=== PATIENT | male | born 1980 | race Caucasian/White ===

== ENCOUNTER 2024-12-06 08:35 | Outpatient (CLI) | payer OTHER, SELFPAY ==
--- OUTSIDE RECORDS SUMMARY | 2024-12-08 16:16 | XMS_ITS | Data Portability ---
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 Follow-up 4 months CBC CMP thyroid studies and free and total testosterone [email or web address] Not available 02/27/2024 18:37:52 08/23/2024 08/23/2024 we will try to get him on GLP 1. Blood pressure is controlled. Dyslipidemia continue with statin. Contrave not working he got his blood work drawn this morning we will review it when available see me in 6 months. Patient will benefit from sleep study given fatigue low testosterone insomnia [email or web address] Not available 11/08/2024 12:05:39 Plan of Treatment Reminders Order Date Submit Date Provider Last Modified By Organization Details Last Modified Time Details Appointments ANY 15 2024 03:15P Andreas Kingston MD Not available Not available Not available Lab lipid panel, serum 2023 024 [place] [facility], [address], [place], [address], 03/18/2024 08:27:22 TSH + free T4, serum 2023 024 [place], [address], [place], [address], 03/19/2024 11:09:54 T3, free, serum or plasma 2023 024 [facility], [address], [place], [address], 03/19/2024 10:13:15 testoste trini, free + total, serum [address] [facility], [address], [place], [address], 03/23/2024 15:12:55 CBC w/ auto diff 2023 024 [place] [facility], [address], [place], [address], 03/18/2024 00:01:37 CMP, serum or plasma [address] [facility], [address], [place], [address], 03/18/2024 00:01:35 Referral None recorded . Procedures None recorded . Surgeries None recorded . Imaging None recorded . Medication Orders None recorded . Patient TargetsNo targets recorded. Patient Instructions Encounter Date Encounter Id Patient Instructions Last Modified By Organization Details Last Modified Time 08/23/2024 [id number] A healthy lifestyle: care instructions [email or web address] Not available 08/23/2024 21:15:34 Reason for Referral None Reported. Results Created Date Observation Date Name Description Value Unit Range Abnormal Flag Note LastModifiedBy Organization Detail LastModifiedTime 03/17/2003/17/2024 COMPR EHENS TORRES METAB OLIC PANEL sodium 141 mmol/ L 134-14 4 normal Not Available [facility] (Lab) [address] [place], [address], 03/18/2024 00:01:35 03/17/20 24 03/17/2024 COMPR EHENS TORRES METAB OLIC PANEL potassium 4.4 mmol/ L 3.5-5. 2 normal Not Available [facility] (Lab) [address], [place], [address], 03/18/2024 00:01:35 03/17/20 24 03/17/2024 COMPR EHENS TORRES METAB OLIC PANEL chloride 106 mmol/ L 96-[address] [facility] (Lab) [address] [place], [address], 03/18/2024 00:01:35 03/17/20 24 03/17/2024 COMPR EHENS TORRES METAB OLIC PANEL carbon dioxide 23 mmol/ L 20-[address] [facility] (Lab) [address] [place], [address], 03/18/2024 00:01:35 03/17/20 24 03/17/2024 COMPR EHENS TORRES METAB OLIC PANEL anion gap 17.0 mmol/ L Not Available [facility] (Lab) [address], [place], [address], 03/18/2024 00:01:35 03/17/20 24 03/17/2024 COMPR EHENS TORRES METAB OLIC PANEL blood urea nitrogen 19 mg/dL 6-24 normal Not Available [facility] (Lab) [address] [place], [address], 03/18/2024 00:01:35 03/17/20 24 03/17/2024 COMPR EHENS TORRES METAB OLIC PANEL creatinine 1.14 mg/dL 0.76-1 [address] [facility] (Lab) [address] [place], [address], 03/18/2024 00:01:35 03/17/20 24 03/17/2024 COMPR EHENS TORRES METAB OLIC PANEL glomerular filtration rate 82 mL/mi n/1 Not Available [facility] (Lab) [address] [place], [address], 03/18/2024 00:01:35 03/17/20 24 03/17/2024 COMPR EHENS TORRES METAB OLIC PANEL BUN creatinine ratio 17 9-20 normal Not Available [facility] (Lab) [address] [place], [address], 03/18/2024 00:01:35 03/17/20 24 03/17/2024 COMPR EHENS TORRES METAB OLIC PANEL glucose 106 mg/dL 70-[address] [facility] (Lab) [address] [place], [address], 03/18/2024 00:01:35 03/17/20 24 03/17/2024 COMPR EHENS TORRES METAB OLIC PANEL osmolality calculated 284 275-29 [address] [facility] (Lab) [address] [place], [address], 03/18/2024 00:01:35 03/17/20 24 03/17/2024 COMPR EHENS TORRES METAB OLIC PANEL calcium 9.7 mg/dL 8.7-10 .[address] [facility] (Lab) [address], [place], [address], 03/18/2024 00:01:35 03/17/20 24 03/17/2024 COMPR EHENS TORRES METAB OLIC PANEL bilirubin total 0.6 mg/dL 0.0-1. [address] [facility] (Lab) [address] [place], [address], 03/18/2024 00:01:35 03/17/20 24 03/17/2024 COMPR EHENS TORRES METAB OLIC PANEL aspartate amino transferase 37 IU/L 0-40 normal Not Available [facility] (Lab) [address] [place], [address], 03/18/2024 00:01:35 03/17/20 24 03/17/2024 COMPR EHENS TORRES METAB OLIC PANEL alanine aminotransfe rase 60 IU/L 0-44 high Not Available [facility] (Lab) [address] [place], [address], 03/18/2024 00:01:35 03/17/20 24 03/17/2024 COMPR EHENS TORRES METAB OLIC PANEL total protein 7.3 g/dL 6.0-8. 5 normal Not Available [facility] (Lab) [address], [place], [address], 03/18/2024 00:01:35 03/17/20 24 03/17/2024 COMPR EHENS TORRES METAB OLIC PANEL albumin level 4.7 g/dL 4.1-5. 1 normal Not Available [facility] (Lab) [address] [place], [address], 03/18/2024 00:01:35 03/17/20 24 03/17/2024 COMPR EHENS TORRES METAB OLIC PANEL globulin 2.6 g/dL 1.5-4. 5 normal Not Available [facility] (Lab) [address], [place], [address], 03/18/2024 00:01:35 03/17/20 24 03/17/2024 COMPR EHENS TORRES METAB OLIC PANEL albumin globulin ratio 2.0 1.2-2. 2 normal Not Available [facility] (Lab) [address], [place], [address], 03/18/2024 00:01:35 03/17/20 24 03/17/2024 COMPR EHENS TORRES METAB OLIC PANEL alkaline phosphatase 72 IU/L 44-121 normal Not Available [facility] (Lab) [address], [place], [address], 03/18/2024 00:01:35 03/17/20 24 03/17/2024 LIPID PANEL triglyceride s 213 mg/dL 0-149 high Not Available [facility] ([facility] [address], [place], [address], 03/18/2024 00:01:36 03/17/20 24 03/17/2024 LIPID PANEL cholesterol 233 mg/dL 100-19 9 high Not Available [facility] (Lab) [address], [place], [address], 03/18/2024 00:01:36 03/17/20 24 03/17/2024 LIPID PANEL LDL cholesterol 151 mg/dL 0-99 high Not Available [facility] [address] [place], [address], 03/18/2024 00:01:36 03/17/20 24 03/17/2024 LIPID PANEL HDL cholesterol 41 mg/dL 40-999 normal Not Available [facility] [address] [place], [address], 03/18/2024 00:01:36 03/17/20 24 03/17/2024 LIPID PANEL chol HDL ratio 6.0 mg/dL 0-5.0 high Not Available [facility] ([facility]) [address], [place], [address], 03/18/2024 00:01:36 03/17/20 24 03/17/2024 COMPL ETE BLOOD COUNT AUTO DIFF white blood count 6.0 x10e3 /uL 3.4-10 .8 normal Not Available [facility] (Lab) [address], [place], [address], 03/18/2024 00:01:37 03/17/20 24 03/17/2024 COMPL ETE BLOOD COUNT AUTO DIFF red blood count 4.70 x10e6 /uL 4.14-5 .80 normal Not Available [facility] (Lab) [address], [place], [address], 03/18/2024 00:01:37 03/17/20 24 03/17/2024 COMPL ETE BLOOD COUNT AUTO DIFF hemoglobin 14.5 g/dL 13.0-1 7.7 normal Not Available [facility] (Lab) [address] [place], [address], 03/18/2024 00:01:37 03/17/20 24 03/17/2024 COMPL ETE BLOOD COUNT AUTO DIFF hematocrit 42.5 % 37.5-5 1.0 normal Not Available [facility] (Lab) [address] [place], [address], 03/18/2024 00:01:37 03/17/20 24 03/17/2024 COMPL ETE BLOOD COUNT AUTO DIFF mean corpuscular volume 90 fL 79-97 normal Not Available [facility] (Lab) [address] [place], [address], 03/18/2024 00:01:37 03/17/20 24 03/17/2024 COMPL ETE BLOOD COUNT AUTO DIFF mean corpuscular hemoglobin 30.9 pg 26.6-3 3[address] [facility] (Lab) [address] [place], [address], 03/18/2024 00:01:37 03/17/20 24 03/17/2024 COMPL ETE BLOOD COUNT AUTO DIFF mean corpuscular HGB conc 34.1 g/dL 31.5-3 5.[address] [facility] (Lab) [address] [place], [address], 03/18/2024 00:01:37 03/17/20 24 03/17/2024 COMPL ETE BLOOD COUNT AUTO DIFF red cell distribution width 12.4 % 11.5-1 4.[address] [facility] (Lab) [address] [place], [address], 03/18/2024 00:01:37 03/17/20 24 03/17/2024 COMPL ETE BLOOD COUNT AUTO DIFF platelet count 329 x10e3 /uL 150-45 [address] [facility] (Lab) [address] [place], [address], 03/18/2024 00:01:37 03/17/20 24 03/17/2024 COMPL ETE BLOOD COUNT AUTO DIFF mean platelet volume 9.8 fL 8.9-12 .[address] [facility] (Lab) [address] [place], [address], 03/18/2024 00:01:37 03/17/20 24 03/17/2024 COMPL ETE BLOOD COUNT AUTO DIFF immature granulocytes pct auto 0.5 % not estb. Not Available [facility] (Lab) [address] [facility], [place], [address], 03/18/2024 00:01:37 03/17/20 24 03/17/2024 COMPL ETE BLOOD COUNT AUTO DIFF neutrophils percent auto 51 % not estb. Not Available [facility] (Lab) [address] [place], [address], 03/18/2024 00:01:37 03/17/20 24 03/17/2024 COMPL ETE BLOOD COUNT AUTO DIFF lymphocytes percent auto 36 % not estb. Not Available [facility] (Lab) [address] [place], [address], 03/18/2024 00:01:37 03/17/20 24 03/17/2024 COMPL ETE BLOOD COUNT AUTO DIFF monocytes percent auto 10 % not estb. Not Available [facility] (Lab) [address] [facility], [place], [address], 03/18/2024 00:01:37 03/17/20 24 03/17/2024 COMPL ETE BLOOD COUNT AUTO DIFF eosinophils percent auto 2 % not estb. Not Available [facility] (Lab) [address] [facility], [place], [address], 03/18/2024 00:01:37 03/17/20 24 03/17/2024 COMPL ETE BLOOD COUNT AUTO DIFF basophils percent auto 1 % not estb. Not Available [facility] (Lab) [address] [facility], [place], [address], 03/18/2024 00:01:37 03/17/20 24 03/17/2024 COMPL ETE BLOOD COUNT AUTO DIFF neutrophils absolute auto 3.0 x10e3 /uL 1.4-7. [address] [facility] (Lab) [address] [facility], [place], [address], 03/18/2024 00:01:37 03/17/20 24 03/17/2024 COMPL ETE BLOOD COUNT AUTO DIFF immature granulocytes abs auto 0.0 x10e3 /uL 0.0-0. [address] [facility] (Lab) [address] [place], [address], 03/18/2024 00:01:37 03/17/20 24 03/17/2024 COMPL ETE BLOOD COUNT AUTO DIFF lymphocytes absolute auto 2.2 x10e3 /uL 0.7-3. [address] [facility] (Lab) [address] [place], [address], 03/18/2024 00:01:37 03/17/20 24 03/17/2024 COMPL ETE BLOOD COUNT AUTO DIFF monocytes absolute auto 0.6 x10e3 /uL 0.1-0. [address] [facility] (Lab) [address] [place], [address], 03/18/2024 00:01:37 03/17/20 24 03/17/2024 COMPL ETE BLOOD COUNT AUTO DIFF eosinophils absolute auto 0.1 x10e3 /uL 0.0-0. [address] [facility] (Lab) [address] [place], [address], 03/18/2024 00:01:37 03/17/20 24 03/17/2024 COMPL ETE BLOOD COUNT AUTO DIFF basophils absolute auto 0.0 x10e3 /uL 0.0-0. [address] [facility] (Lab) [address] [place], [address], 03/18/2024 00:01:37 03/17/20 24 03/17/2024 COMPL ETE BLOOD COUNT AUTO DIFF nucleated red blood cells auto 0 % 0-0 normal Not Available [facility] (Lab) [address] [place], [address], 03/18/2024 00:01:37 03/17/20 24 03/19/2024 TRIIO DOTHY DAVID E (T3), FREE triiodothyro nine (T3), free 3.5 pg/mL 2.0-4. 4 [facility]: [facility] [address] [place] [address] Lab Direc tor: Buddy jerez PhD, Phone : [phone] Not Available [facility] (Lab) [address] [place], [address], 03/19/2024 11:09:54 03/17/20 24 03/19/2024 TSH+F REE T4 TSH 1.760 uIU/m L 0.450- 4.500 Not Available [facility] (Lab) [address] [place], [address], 03/19/2024 11:09:54 03/17/20 24 03/19/2024 TSH+F REE T4 T4,free(dire ct) 1.20 NG/dL 0.82-1 .77 Perfo rmed at: [facility] - [facility] [address] [place] [address] Lab Direc tor: Buddy jerez PhD, Phone : [phone] Not Available [facility] (Lab) [address] [place], [address], 03/19/2024 11:09:54 03/17/20 24 03/23/2024 TESTO STERO NE, FREE/ TOT EQUIL IB testosterone 96 NG/dL 264-91 6 abnormal Adult male refer ence inter neeta is based on a popul ation of healt hy nonob lin males (BMI <30) betwe en 19 and 39 years old. Haydee gamboa et.al . JCEM 2017, 102;1 161-1 173. PMID: 66482 103. Not Available [facility] (Lab) [address] [place], [address], 03/23/2024 15:12:55 03/17/20 24 03/23/2024 TESTO STERO NE, FREE/ TOT EQUIL IB testosterone ,free 3.59 NG/dL 5.00-2 1.00 abnormal Not Available [facility] (Lab) [address] [place], [address], 03/23/2024 15:12:55 03/17/20 24 03/23/2024 TESTO STERO NE, FREE/ TOT EQUIL IB % free testosterone 3.74 % 1.50-4 .20 Perfo rmed at: 01 - [facility] n [address] [facility], [place] [address] Lab Direc tor: Buddy jerez PhD, Phone : [phone] Perfo rmed at: 02 - [facility] [address] [place] [address] Lab Direc tor: Sandee alfaro MD, Phone : [phone] [facility] (Lab) [address] [place], [address], 03/23/2024 15:12:55 04/19/20 24 04/19/2024 COMPR EHENS TORRES METAB OLIC PANEL sodium 141 mmol/ L 134-14 4 normal Not Available [facility] (Lab) [address] [place], [address], 04/19/2024 21:18:11 04/19/20 24 04/19/2024 COMPR EHENS TORRES METAB OLIC PANEL potassium 4.7 mmol/ L 3.5-5. [address] [facility] (Lab) [address] [facility], [place], [address], 04/19/2024 21:18:11 04/19/20 24 04/19/2024 COMPR EHENS TORRES METAB OLIC PANEL chloride 104 mmol/ L 96-106 normal Not Available [facility] (Lab) [address] [place], [address], 04/19/2024 21:18:11 04/19/20 24 04/19/2024 COMPR EHENS TORRES METAB OLIC PANEL carbon dioxide 21 mmol/ L 20-29 normal Not Available [facility] (Lab) [address] [place], [address], 04/19/2024 21:18:11 04/19/20 24 04/19/2024 COMPR EHENS TORRES METAB OLIC PANEL anion gap 21.0 mmol/ L Not Available [facility] (Lab) [address] [place], [address], 04/19/2024 21:18:11 04/19/20 24 04/19/2024 COMPR EHENS TORRES METAB OLIC PANEL blood urea nitrogen 19 mg/dL 6-24 normal Not Available [facility] (Lab) [address] [place], [address], 04/19/2024 21:18:11 04/19/20 24 04/19/2024 COMPR EHENS TORRES METAB OLIC PANEL creatinine 1.10 mg/dL 0.76-1 .27 normal Not Available [facility] (Lab) [address], [place], [address], 04/19/2024 21:18:11 04/19/20 24 04/19/2024 COMPR EHENS TORRES METAB OLIC PANEL glomerular filtration rate 86 mL/mi n/1 Not Available [facility] (Lab) [address] [place], [address], 04/19/2024 21:18:11 04/19/20 24 04/19/2024 COMPR EHENS TORRES METAB OLIC PANEL BUN creatinine ratio 17 9-20 normal Not Available [facility] (Lab) [address] [place], [address], 04/19/2024 21:18:11 04/19/20 24 04/19/2024 COMPR EHENS TORRES METAB OLIC PANEL glucose 109 mg/dL 70-99 high Not Available [facility] (Lab) [address] [place], [address], 04/19/2024 21:18:11 04/19/20 24 04/19/2024 COMPR EHENS TORRES METAB OLIC PANEL osmolality calculated 284 275-29 5 normal Not Available [facility] (Lab) [address] [place], [address], 04/19/2024 21:18:11 04/19/20 24 04/19/2024 COMPR EHENS TORRES METAB OLIC PANEL calcium 10.0 mg/dL 8.7-10 .[address] [facility] (Lab) [address], [place], [address], 04/19/2024 21:18:11 04/19/20 24 04/19/2024 COMPR EHENS TORRES METAB OLIC PANEL bilirubin total 0.5 mg/dL 0.0-1. [address] [facility] (Lab) [address], [place], [address], 04/19/2024 21:18:11 04/19/20 24 04/19/2024 COMPR EHENS TORRES METAB OLIC PANEL aspartate amino transferase 30 IU/L 0-40 normal Not Available [facility] (Lab) [address] [place], [address], 04/19/2024 21:18:11 04/19/20 24 04/19/2024 COMPR EHENS TORRES METAB OLIC PANEL alanine aminotransfe rase 58 IU/L 0-44 high Not Available [facility] (Lab) [address] [place], [address], 04/19/2024 21:18:11 04/19/20 24 04/19/2024 COMPR EHENS TORRES METAB OLIC PANEL total protein 7.7 g/dL 6.0-8. [address] [facility] (Lab) [address], [place], [address], 04/19/2024 21:18:11 04/19/20 24 04/19/2024 COMPR EHENS TORRES METAB OLIC PANEL albumin level 4.8 g/dL 4.1-5. [address] [facility] (Lab) [address] [place], [address], 04/19/2024 21:18:11 04/19/20 24 04/19/2024 COMPR EHENS TORRES METAB OLIC PANEL globulin 2.9 g/dL 1.5-4. [address] [facility] (Lab) [address] [place], [address], 04/19/2024 21:18:11 04/19/20 24 04/19/2024 COMPR EHENS TORRES METAB OLIC PANEL albumin globulin ratio 2.0 1.2-2. [address] [facility] (Lab) [address] [place], [address], 04/19/2024 21:18:11 04/19/20 24 04/19/2024 COMPR EHENS TORRES METAB OLIC PANEL alkaline phosphatase 78 IU/L 44-121 normal Not Available [facility] (Lab) [address], [place], [address], 04/19/2024 21:18:11 04/19/20 24 04/19/2024 COMPL ETE BLOOD COUNT AUTO DIFF white blood count 6.9 x10e3 /uL 3.4-10 .[address] [facility] (Lab) [address], [place], [address], 04/19/2024 21:54:24 04/19/20 24 04/19/2024 COMPL ETE BLOOD COUNT AUTO DIFF red blood count 4.92 x10e6 /uL 4.14-5 [address] [facility] (Lab) [address] [place], [address], 04/19/2024 21:54:24 04/19/20 24 04/19/2024 COMPL ETE BLOOD COUNT AUTO DIFF hemoglobin 15.1 g/dL 13.0-1 7.[address] [facility] (Lab) [address] [place], [address], 04/19/2024 21:54:24 04/19/20 24 04/19/2024 COMPL ETE BLOOD COUNT AUTO DIFF hematocrit 44.1 % 37.5-5 1.[address] [facility] (Lab) [address] [place], [address], 04/19/2024 21:54:24 04/19/20 24 04/19/2024 COMPL ETE BLOOD COUNT AUTO DIFF mean corpuscular volume 90 fL 79-97 normal Not Available [facility] (Lab) [address] [facility], [place], [address], 04/19/2024 21:54:24 04/19/20 24 04/19/2024 COMPL ETE BLOOD COUNT AUTO DIFF mean corpuscular hemoglobin 30.7 pg 26.6-3 3.0 normal Not Available [facility] (Lab) [address] [place], [address], 04/19/2024 21:54:24 04/19/20 24 04/19/2024 COMPL ETE BLOOD COUNT AUTO DIFF mean corpuscular HGB conc 34.2 g/dL 31.5-3 5.7 normal Not Available [facility] (Lab) [address] [place], [address], 04/19/2024 21:54:24 04/19/20 24 04/19/2024 COMPL ETE BLOOD COUNT AUTO DIFF red cell distribution width 12.5 % 11.5-1 4.5 normal Not Available [facility] (Lab) [address] [facility], [place], [address], 04/19/2024 21:54:24 04/19/20 24 04/19/2024 COMPL ETE BLOOD COUNT AUTO DIFF platelet count 309 x10e3 /uL 150-45 0 normal Not Available [facility] (Lab) [address] [place], [address], 04/19/2024 21:54:24 04/19/20 24 04/19/2024 COMPL ETE BLOOD COUNT AUTO DIFF mean platelet volume 10.2 fL 8.9-12 .7 normal Not Available [facility] (Lab) [address] [place], [address], 04/19/2024 21:54:24 04/19/20 24 04/19/2024 COMPL ETE BLOOD COUNT AUTO DIFF immature granulocytes pct auto 1.7 % not estb. Not Available [facility] (Lab) [address], [place], [address], 04/19/2024 21:54:24 04/19/20 24 04/19/2024 COMPL ETE BLOOD COUNT AUTO DIFF neutrophils percent auto 55 % not estb. Not Available [facility] (Lab) [address] [facility], [place], [address], 04/19/2024 21:54:24 04/19/20 24 04/19/2024 COMPL ETE BLOOD COUNT AUTO DIFF lymphocytes percent auto 31 % not estb. Not Available [facility] (Lab) [address] [facility], [place], [address], 04/19/2024 21:54:24 04/19/20 24 04/19/2024 COMPL ETE BLOOD COUNT AUTO DIFF monocytes percent auto 10 % not estb. Not Available [facility] (Lab) [address], [place], [address], 04/19/2024 21:54:24 04/19/20 24 04/19/2024 COMPL ETE BLOOD COUNT AUTO DIFF eosinophils percent auto 1 % not estb. Not Available [facility] (Lab) [address] [facility], [place], [address], 04/19/2024 21:54:24 04/19/20 24 04/19/2024 COMPL ETE BLOOD COUNT AUTO DIFF basophils percent auto 1 % not estb. Not Available [facility] (Lab) [address] [facility], [place], [address], 04/19/2024 21:54:24 04/19/20 24 04/19/2024 COMPL ETE BLOOD COUNT AUTO DIFF neutrophils absolute auto 3.8 x10e3 /uL 1.4-7. 0 normal Not Available [facility] (Lab) [address] [facility], [place], [address], 04/19/2024 21:54:24 04/19/20 24 04/19/2024 COMPL ETE BLOOD COUNT AUTO DIFF immature granulocytes abs auto 0.1 x10e3 /uL 0.0-0. [address] [facility] (Lab) [address] [place], [address], 04/19/2024 21:54:24 04/19/20 24 04/19/2024 COMPL ETE BLOOD COUNT AUTO DIFF lymphocytes absolute auto 2.2 x10e3 /uL 0.7-3. 1 normal Not Available [facility] (Lab) [address] [place], [address], 04/19/2024 21:54:24 04/19/20 24 04/19/2024 COMPL ETE BLOOD COUNT AUTO DIFF monocytes absolute auto 0.7 x10e3 /uL 0.1-0. [address] [facility] (Lab) [address] [place], [address], 04/19/2024 21:54:24 04/19/20 24 04/19/2024 COMPL ETE BLOOD COUNT AUTO DIFF eosinophils absolute auto 0.1 x10e3 /uL 0.0-0. 4 normal Not Available [facility] (Lab) [address] [place], [address], 04/19/2024 21:54:24 04/19/20 24 04/19/2024 COMPL ETE BLOOD COUNT AUTO DIFF basophils absolute auto 0.0 x10e3 /uL 0.0-0. 2 normal Not Available [facility] (Lab) [address] [place], [address], 04/19/2024 21:54:24 04/19/20 24 04/19/2024 COMPL ETE BLOOD COUNT AUTO DIFF nucleated red blood cells auto 0 % 0-0 normal Not Available [facility] ([facility]) [address] [place], [address], 04/19/2024 21:54:24 04/19/20 24 04/21/2024 PROST ATE SPECI FIC AG prostate specific Ag 0.7 NG/mL 0.0-4. 0 Trevon ECLIA metho dolog y. Accor ding to the [employer]i can [employer] i[employer] n, Serum PSA shoul d decre ase and remai n at undet ectab le level s after radic al prost atect j[place]. The AUA defin es bioch emica l recur rence as an initi al PSA value 0.2 ng/mL or great er follo wed by a subse quent confi rmato ry PSA value 0.2 ng/mL or great er. Value s obtai radu with diffe rent assay metho ds or kits canno t be used inter desai eably . Resul ts canno t be inter prete d as absol ambler evide nce of the prese nce or absen ce of beau espinosa se. Perfo rmed at: 01 - [facility] [address] [id number] [facility]8 Lab Direc tor: Buddy jerez PhD, Phone : [phone] [facility] (Lab) [address] [place], [address], 04/21/2024 12:11:41 04/19/20 24 04/25/2024 TESTO STERO NE, FREE/ TOT EQUIL IB testosterone 257 NG/dL 264-91 6 abnormal Adult male refer ence inter neeta is based on a popul ation of healt hy nonob lin males (BMI <30) betwe en 19 and 39 years old. Haydee gamboa, et.al . JCEM 2017, 102;1 161-1 173. PMID: [address] [facility] (Lab) [address] [place], [address], 04/25/2024 22:09:41 04/19/20 24 04/25/2024 TESTO STERO NE, FREE/ TOT EQUIL IB testosterone ,free 10.15 NG/dL 5.00-2 1.00 Not Available [facility] [facility] ([facility] [address] [place], [address], 04/25/2024 22:09:41 04/19/20 24 04/25/2024 TESTO STERO NE, FREE/ TOT EQUIL IB % free testosterone 3.95 % 1.50-4 .20 Perfo rmed at: 01 - [facility] n [address] [place] [address] 126 Lab Direc tor: Buddy jerez PhD, Phone : [phone] Perfo rmed at: 02 - [facility] [place] [address] [facility] , [place] [address] Lab Direc tor: Sandee alfaro MD, Phone : [phone] Not Available [facility] (Lab) [address] [facility], [place], [address], 04/25/2024 22:09:41 08/23/2008/25/2024 LONG TIN ferritin 259 NG/mL 30-400 Perfo rmed at: 01 - [facility] n [address] [place], [place] [id number] Lab Direc tor: Buddy jerez PhD, Phone : [phone] Not Available [facility] (Lab) [address] [facility], [place], [address], 08/25/2024 08:15:02 08/23/20 24 08/25/2024 IRON AND TIBC iron bind.cap.(TI BC) 178 ug/dL 250-45 0 abnormal Not Available [facility] (Lab) [address] [facility], [place], [address], 08/25/2024 08:15:03 08/23/20 24 08/25/2024 IRON AND TIBC UIBC 98 ug/dL 111-34 3 abnormal Not Available [facility] (Lab) [address] [place], [address], 08/25/2024 08:15:03 08/23/20 24 08/25/2024 IRON AND TIBC iron 80 ug/dL 38-169 Not Available [facility] (Lab) [address] [facility], [place], [address], 08/25/2024 08:15:03 08/23/20 24 08/25/2024 IRON AND TIBC iron saturation 45 % 15-55 Not Available [facility] ([facility]) [address] [facility], [place], [address], 08/25/2024 08:15:03 08/23/20 24 08/25/2024 ACUTE HEPAT ITIS hep A Ab, IgM NEGATI VE negati ve A negat torres anti- HAV IgM resul t sugge sts no recen t or curre nt HAV infec tion. Not Available [facility] [address] [facility], [place], [address], 08/25/2024 08:15:04 08/23/20 24 08/25/2024 ACUTE HEPAT ITIS HBsAg screen NEGATI VE negati ve Not Available [facility] (Lab) [address] [facility], [place], [address], 08/25/2024 08:15:04 08/23/20 24 08/25/2024 ACUTE HEPAT ITIS hep B core Ab, IgM NEGATI VE negati ve Not Available [facility] (Lab) [address] [facility], [place], [address], 08/25/2024 08:15:04 08/23/20 24 08/25/2024 ACUTE HEPAT ITIS HCV Ab NON REACTI VE non reacti ve Not Available [facility] (Lab) [address] [facility], [place], [address], 08/25/2024 08:15:04 08/23/20 24 08/25/2024 ACUTE HEPAT ITIS interpretati on: COMMEN T . Not infec arturo with HCV unles s early or acute infec tion is suspe cted (whic h may be delay ed in an immun ocomp romis ed indiv idual ), or other evide nce exist s to indic ate HCV infec tion. Perfo rmed at: 01 - [facility] [address] [facility], [place] [id number] [facility] Lab Direc tor: Buddy jerez PhD, Phone : [phone] Not Available [facility] [address] [place], [address], 08/25/2024 08:15:04 08/23/2008/25/2024 LONG TIN ferritin 259 NG/mL 30-400 Perfo rmed at: 01 - [facility] [place] [address] [facility], [place] [id number] [facility] Lab Direc tor: Buddy jerez PhD, Phone : [phone] Not Available [facility] [address] [facility], [place], [address], 08/25/2024 11:14:59 08/23/2008/25/2024 IRON AND TIBC iron bind.cap.(TI BC) 178 ug/dL 250-45 0 abnormal Not Available [facility] (Lab) [address] [place], [address], 08/25/2024 11:14:59 08/23/2008/25/2024 IRON AND TIBC UIBC 98 ug/dL 111-34 3 abnormal Not Available [facility] (Lab) [address] [facility], [place], [address], 08/25/2024 11:14:59 08/23/2008/25/2024 IRON AND TIBC iron 80 ug/dL 38-169 Not Available [facility] (Lab) [address] [place], [address], 08/25/2024 11:14:59 08/23/2008/25/2024 IRON AND TIBC iron saturation 45 % 15-55 Not Available [facility] [address] [place], [address], 08/25/2024 11:14:59 08/23/2008/25/2024 STEVE COMPR EHENS TORRES PANEL anti-DNA (ds) Ab qn <1 IU/mL 0-9 Negat torres <5 Equiv ocal 5 - 9 Posit torres >9 Not Available [facility] [address] [place], [address], 08/25/2024 11:15:00 08/23/20 24 08/25/2024 STEVE COMPR EHENS TORRES PANEL production engine repairer antibodies <0.2 ai 0.0-0. [address] [facility] (Lab) [address] [place], [address], 08/25/2024 11:15:00 08/23/20 24 08/25/2024 STEVE COMPR EHENS TORRES PANEL beverly antibodies <0.2 ai 0.0-0. [address] [facility] (Lab) [address] [place], [address], 08/25/2024 11:15:00 08/23/20 24 08/25/2024 STEVE COMPR EHENS TORRES PANEL antisclerode rma-70 antibodies <0.2 ai 0.0-0. [address] [facility] (Lab) [address] [place], [address], 08/25/2024 11:15:00 08/23/20 24 08/25/2024 STEVE COMPR EHENS TORRES PANEL sjogren's anti-ss-A <0.2 ai 0.0-0. [address] [facility] (Lab) [address] [place], [address], 08/25/2024 11:15:00 08/23/20 24 08/25/2024 STEVE COMPR EHENS TORRES PANEL sjogren's anti-ss-B <0.2 ai 0.0-0. [address] [facility] (Lab) [address] [place], [address], 08/25/2024 11:15:00 08/23/20 24 08/25/2024 STEVE COMPR EHENS TORRES PANEL antichromati n antibodies <0.2 ai 0.0-0. [address] [facility] (Lab) [address] [place], [address], 08/25/2024 11:15:00 08/23/20 24 08/25/2024 STEVE COMPR EHENS TORRES PANEL anti-annette-1 <0.2 ai 0.0-0. [address] [facility] (Lab) [address] [place], [address], 08/25/2024 11:15:00 08/23/20 24 08/25/2024 STEVE COMPR EHENS TORRES PANEL anti-centrom ere B antibodies <0.2 ai 0.0-0. [address] [facility] (Lab) [address] [place], [address], 08/25/2024 11:15:00 08/23/20 24 08/25/2024 STEVE COMPR EHENS TORRES PANEL see below: Francisco Perez [employer] nt[employer] [facility] [employer] se [employer] iatio n ----- ----- ----- ----- ----- ----- ----- ----- ----- ----- ----- ----- Condi tion Frequ ency ----- ----- ----- ----- - ----- ----- ----- ----- ---- ----- ---- Antin uclea r Antib laxmi, SLE, mixed conne ctive Direc t (STEVE- D) xinu e disea ses ----- ----- ----- ----- - ----- ----- ----- ----- ---- ----- ---- dsDNA SLE 40 - 60% ----- ----- ----- ----- - ----- ----- ----- ----- ---- ----- ---- Chrom atin Drug induc ed SLE 90% SLE 48 - 97% ----- ----- ----- ----- - ----- ----- ----- ----- ---- ----- ---- SSA (Ro) SLE 25 - 35% Sjogr en's Syndr ome 40 - 70% Neona iesha Lupus 100% ----- ----- ----- ----- - ----- ----- ----- ----- ---- ----- ---- SSB (La) SLE 10% Sjogr en's Syndr ome 30% ----- ----- ----- ----- - ----- ----- ----- ----- --- ----- ---- Sm (anti -Ashok h) SLE 15 - 30% ----- ----- ----- ----- - ----- ----- ----- ----- --- ----- ---- APARTMENT COORDINATOR Mixed Conne ctive Tissu e Disea se 95% (U1 nRNP, SLE 30 - 50% anti- ribon ucleo prote in) Polym yosit is and/o r [place] tomyo sitis 20% ----- ----- ----- ----- - ----- ----- ----- ----- ---- ----- ---- Scl-7 0 (anti DNA Scler oderm a (diff use) 20 - 35% topoi mihaela ase) Crest 13% ----- ----- ----- ----- - ----- ----- ----- ----- ---- ----- ---- Annette-1 Polym yosit is and/o r [place] tomyo sitis 20 - 40% ----- ----- ----- ----- - ----- ----- ----- ----- ---- ----- ---- Centr omere B Scler oderm a - Crest varia nt 80% Perfo rmed at: 01 - [facility] [address] [place] [address] Lab Direc tor: Buddy jerez PhD, Phone : [phone] [facility] (Lab) [address] [place], [address], 08/25/2024 11:15:00 08/23/20 24 08/25/2024 CERUL OPLAS MIN ceruloplasmi n 19.8 mg/dL 16.0-3 1.0 Perfo rmed at: 01 - [facility] [address] [place] [address] Lab Direc tor: Buddy jerez PhD, Phone : [phone] [facility] (Lab) [address] [place], [address], 08/25/2024 13:09:23 Result Notes None recorded. Problems Name Problem SNOMED Code Status Onset Date Resolution Date Notes Provider Name and Address Organization Details Recorded Time Testosterone level below reference range 510389751 Active 2023 ANIBAL [place], [place] - [facility] 4 16:08:18 Screening for malignant neoplasm of prostate Active 2023 Jamaal Chakraborty [place], [place] [facility] 4 16:08:19 Liver enzymes level above reference range 819042331 Active 2023 Jamaal Chakraborty [place] [facility] 4 11:34:52 Fatigue 48149498 Active 2023 Jamaal Chakraborty [place] [facility] 4 11:35:22 Essential hypertension 01726486 Active 2023 Sarahi Kingston MD Attn: Ricardo melo,[address] [facility], [place], [address] [facility] [place] [facility] 4 22:03:40 Hyperlipidemia 32130114 Active 2023 Sarahi Kingston MD Attn: Ricardo melo,[address] [facility], [place], [address], [facility] 4 22:03:41 Morbid obesity 263369208 Active 2023 Sarahi Kingston MD Attn: Ricardo melo,[address] [facility], [place], [address], [facility] - [facility] 4 22:03:44 Insomnia 115251695 Active 2023 Sarahi Kingston MD Attn: Ricardo melo,[address] [facility], [place], [address], [facility] - [facility] 4 22:04:03 Problem Notes None recorded. Procedures Surgical History Date Name Laterality Status Provider Name and Address Organization Details Recorded Time Cholecystectomy completed Sudha Mccord MA [facility] 02/26/2024 11:46:23 removal of pilonidal cyst completed Sudha Mccord MA [facility] 02/26/2024 11:49:38 Imaging Results None recorded. Procedure Notes None recorded. Medical Equipment None Reported. Allergies Allergen ID Allergen Name Allergen Category Reaction Reaction Severity Criticality Documentation Date Start Date Code Code System Note Provider Name and Address Organization Details Recorded Time [id number] lisinopri l medicatio n cough Not available Not available 02/26/2024 85473 RxNorm Not Available Not Available Not Available Medications Name Sig Start Date Stop Date Status Note LastModified by Organization Details LastModified Time atorvastatin 10 mg tablet TAKE 1 TABLET DAILY active Not Available Not Available No t Available lisinopril 10 mg tablet take 1 tablet by mouth daily active Not Available Not Available Not Available losartan 25 mg tablet TAKE 1 TABLET DAILY active Not Available Not Available No t Available BD Luer-Asim Syringe 3 mL 25 gauge x 1 active Not Available Not Available Not Available testosterone cypionate 200 mg/mL intramuscula r oil Inject 200 mg every 2 weeks by intramuscul ar route. active Not Available Not Available No t Available zolpidem 10 mg tablet active Not Available Not Available No t Available Contrave 8 mg-90 mg tablet,exten ded release active Not Available Not Available Not Available Wegovy 1 mg/0.5 mL subcutaneous pen injector inject 0.5mg weekly for 4wks then go to 1mg weekly 2024 active Not Available Not Available Not Avai lable Wegovy 0.25 mg/0.5 mL subcutaneous pen injector INJECT 0.25MG SUBCUTANEOU SLY ONCE A WEEK FOR 4 WEEKS THEN INCREASE TO 0.5MG active Not Available Not Available No t Available Wegovy 0.5 mg/0.5 mL subcutaneous pen injector inject 0.5mg weekly for 4wks then go to 1mg weekly 2023 active Not Available Not Available Not Avai lable Vitals Date Recorded Body height Provider Name an d Address Organization Details Last Updated DateTime 02/26/2024 180.34 cm Sudha Mccord MA [facility] 2023 11:45:35 Date Recorded Body mass index (BMI) Body weight Provider Name and Address Organization Details Last Updated DateTime 02/26/2024 41.2 kg/m2 957425.19 g Sudha Mccord MA [facility] 02/26/2024 11:45:52 Date Recorded Respiratory rate Provider Name a nd Address Organization Details Last Updated DateTime 02/26/2024 20 /min [facility]IBAL [facility] 02/26/2024 11:46:00 Date Recorded Oxygen saturation Oxygen saturation in Arterial blood by Pulse oximetry Provider Name and Address Organization Details Last Updated DateTime 02/26/2024 95 % 95 % Sudha Mccord [place] [facility] [facility] 02/26/2024 11:50:53 Date Recorded Heart rate Provider Name an d Address Organization Details Last Updated DateTime 02/26/2024 70 /min Sudha Mccord [place] [facility] 2023 11:50:57 Date Recorded Body height Provider Name an d Address Organization Details Last Updated DateTime 08/23/2024 180.34 cm ANIBAL Bonilla [facility] 16:32:10 Date Recorded Body mass index (BMI) Body weight Provider Name and Address Organization Details Last Updated DateTime 08/23/2024 44.5 kg/m2 082712.4 kameron Huerta MA [facility] 1 16:37:08 Date Recorded Heart rate Provider Name an d Address Organization Details Last Updated DateTime 08/23/2024 81 /min Rohini Huerta MA [facility] 16:38:39 Date Recorded Oxygen saturation Oxygen saturation in Arterial blood by Pulse oximetry Provider Name and Address Organization Details Last Updated DateTime 08/23/2024 98 % 98 % Rohini Huerta MA [facility] 08/23/2024 16:38:49 Date Recorded Systolic blood pressure Diastolic blood pressure Provider Name and Address Organization Details Last Updated DateTime 02/26/2024 136 mm[Hg] 86 mm[Hg] Sudha Mccord MA [facility] 02/26/2024 11:52:15 Date Recorded Systolic blood pressure Diastolic blood pressure Provider Name and Address Organization Details Last Updated DateTime 08/23/2024 122 mm[Hg] 64 mm[Hg] Rohini Huerta MA [facility] 08/23/2024 16:40:18 Social History Question Answer Notes LastModified by Organizat ion Details LastModified Time Tobacco Smoking Status Never Smoker Sudha Mccord MA [facility] 02/26/2024 11:46:59 Do You Have An Advance Directive? No Information n ot available 02/26/2024 What Is Your Level Of Alcohol Consumption? Occasional Information not available 02/26/2024 Are You Blind Or Do You Have Difficulty Seeing? No Information n ot available 02/26/2024 What Is Your Level Of Caffeine Consumption? Moderate Daily Information not available 02/26/2024 In The 14 Days Before Symptom Onset, Have You Had Close Contact With A Laboratory-confirm ed COVID-19 While That Case Was Ill? No Information n ot available 02/26/2024 In The 14 Days Before Symptom Onset, Have You Had Close Contact With A Person Who Is Under Investigation For COVID-19 While That Person Was Ill? No Information not available 02/26/2024 Have You Been To An Area Known To Be High Risk For COVID-19? No Information not available 02/26/2024 Are You Deaf Or Do You Have Serious Difficulty Hearing? No Information not available 02/26/2024 What Type Of Diet Are You Following? REGULAR Information n ot available 02/26/2024 Are There Any Guns Present In Your Home? No Information not available 02/26/2024 What Was The Date Of Your Most Recent Tobacco Screening? 02/26/2024 Information not available 02/26/2024 What Is Your Relationship Status? Information not available 02/26/2024 Do You Use Your Seat Belt Or Car Seat Routinely? Yes Information not available 02/26/2024 Do You Have Smoke And Carbon Monoxide Detectors In Your Home? Yes Information not available 02/26/2024 Do You Use Any Illicit Or Recreational Drugs? No Information not available 02/26/2024 Do You Use Sunscreen Routinely? No Information not available 02/26/2024 Has Tobacco Cessation Counseling Been Provided? Yes Information not available 02/26/2024 On What Date Was Tobacco Cessation Counseling Provided? 02/26/2024 Information not available 02/26/2024 Do You Or Have You Ever Used Any Other Forms Of Tobacco Or Nicotine? No Information not available 02/26/2024 Sex: Male Functional Status Question Answer Note LastModified by Organizat ion Details LastModified Time Are you able to care for yourself? Yes Information not available 02/26/2024 What is your exercise level? Occasional 5x-6x a week Information not available 02/26/2024 Mental Status None recorded. Family History Nothing Reported Notes:pt. has been adopted Medical History Condition Response Coronary Artery Disease N Other N Atrial Fibrillation N High Blood Pressure Y Kidney or Bladder Problems N Thyroid Problems N GI Problems N Depression N COPD N Blood Clots N Skin Problems N Anemia N Heart Attack ([place]) N Anxiety Disorder N Diabetes N Muscle, Joint, or Bone Problems N Seizures/Epilepsy N Acid Reflux (GERD) N Cancer N Stroke N Asthma N Allergies Y High Cholesterol N Hepatitis N Liver Disease N Headaches N Heart Failure N Osteoporosis N Immunizations Vaccine Type Date Status Note Provider Nam e and Address Organization Details Recorded Time Influenza, split virus, quadrivalent, preservative 0 completed Jamaal Chakraborty [place], [place] [facility] 05/03/2024 11:35:41 HPV9 9 completed ANIBAL [place] [facility] 05/03/2024 11:35:41 COVID-19, mRNA, LNP-S, PF, 100 mcg/0.5mL dose or 50 mcg/0.25mL dose 1 completed [place] [facility] 05/03/2024 11:35:41 COVID-19, mRNA, LNP-S, PF, 100 mcg/0.5mL dose or 50 mcg/0.25mL dose 1 completed [place] [facility] 05/03/2024 11:35:41 COVID-19, mRNA, LNP-S, PF, 100 mcg/0.5mL dose or 50 mcg/0.25mL dose 1 completed [place] [facility] 05/03/2024 11:35:41 COVID-19, mRNA, LNP-S, bivalent, PF, 50 mcg/0.5 mL or 25mcg/0.25 mL dose 2 completed [place] [facility] 05/03/2024 11:35:41 Influenza, split virus, trivalent, preservative 4 completed [place] [facility] 05/03/2024 11:35:41 Past Encounters Encounter ID Performer Location Encounter Start Date Encounter Closed Date Diagnosis/Indication Diagnosis SNOMED-CT Code Diagnosis ICD10 Code Diagnosis Note [id number] MD Oniel Valadez (Adult Med) [address] [place] [phone] 02/26/2024 11:18:25 02/26/2024 12:29:35 Fatigue 84183963 R53.83 Screening for cardiovascular system disease 668608548 Z13.6 [id number] MD Oniel Valadez (Adult Med) [address] [place] [phone] 08/23/2024 16:14:35 08/23/2024 17:05:57 Morbid obesity 866336738 E66.01 Essential hypertension 21319536 I10 Hyperlipidemia 94102321 E78.5 Testostero ne level below reference range 801752491 R89.1 Insomnia 674599717 G47.0 0 Health Concerns Section Related Observation LastModified by Organization Detai ls LastModified Time None Recorded Concern Status LastModified by Organization Details LastModified Time None Recorded Advance Directives Directive N: Payers Encounter Date Sequence Insurance Name Policy Number Policy Chen Covered Member ID Chen Member ID Guarantor Name 02/26/2024 1 [place] - DOS PRIOR TO 2024 - [employer] () Willard Cedeño [id number] Willard Cedeño 08/23/2024 1 [place] - DOS PRIOR TO 2024 - [employer] () Willard Cedeño [id number] Willard Cedeño Notes Date Note Type Note Provider Name and Address Organization Details Recorded Time 02/26/2024 text/html Taking his blood pressure medicine with without any side effects has had some he is tolerating Contrave. He does use some and Ambien for insomnia Sarahi Kingston MD Attn: Accounting, [address] [facility], [place], [address], [facility] 02/27/2024 18:38:02 08/23/2024 text/html Hypertension blo od pressure looks good 122/64 he is asymptomatic. Obesity no luck with the Contrave he had no luck with the phentermine. Low testosterone he can start that. Insomnia zolpidem does help. Dyslipidemia trying to take atorvastatin daily. Fatigue daytime can fall asleep very easily sitting in a quiet position. 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
--- OUTSIDE RECORDS SUMMARY | 2024-12-08 16:17 | XMS_ITS | Data Portability ---
Author Organization [place] - [facility] [employer], Main Office Address [address] [place] [address] Assessment Encounter Date Assessment Date Assessment LastModified by Organization Details LastModified Time 06/11/2023 06/11/2023 Will try to get injectable GLP 1 agent Blood work he needs to get it done See me back 4 weeks after starting medicine 4 months without [email or web address] Not available 06/11/2023 21:03:05 12/09/2023 12/09/2023 Insurance has refused G LP 1 agent. They have signal that they will pay for Contrave he has no eating disorder there is no addiction problems with narcotics he is not taking narcotics in any way shape or form will go ahead and prescribe this medication and he will see me back in a few months [email or web address] Not available 12/15/2023 22:27:51 Plan of Treatment Reminders Order Date Submit Date Provider Last Modified By Organization Details Last Modified Time Details Appointments None recorded. Lab T4, free, serum 2022 023 [email or web address] [facility], [address], [address] [facility], [place], [address], 4 13:39:25 TSH, serum or plasma 2022 023 [email or web address] [facility], [address], [address], [place], [address], 4 13:39:26 CBC w/ auto diff 2022 023 [email or web address] [facility], [address], [address], [place], [address], 3 17:34:34 lipid panel, serum 2022 023 [facility], [address], [address], [place], [address], 4 13:39:26 CMP, serum or plasma 2022 023 [facility], [address], [address], [place], [address], 4 13:39:26 T3, free, serum or plasma 2022 023 [facility], [address], [address], [place], [address], 4 13:39:26 Referral None recorded. Procedures None recorded. Surgeries None recorded. Imaging None recorded. Medication Orders Wegovy 0.25 mg/0.5 mL subcutaneou s pen injector 2022 023 [email or web address] [employer] [facility], [address] [place] [address], [address], 3 17:46:00 Patient TargetsNo targets recorded. Patient InstructionsNo instructions recorded. Reason for Referral None Reported. Results Created Date Observation Date Name Description Value Unit Range Abnormal Flag Note LastModifiedBy Organization Detail LastModifiedTime Result Notes None recorded. Problems Name Problem SNOMED Code Status Onset Date Resolution Date Notes Provider Name and Address Organization Details Recorded Time Abnormal urine 968688524 Active Not Available [facility] 3 15:41:58 Insomnia 786746012 Active 2021 Not Available [facility] 3 15:41:59 Shoulder pain 99606874 Active 2021 Not Available [facility] 3 15:41:59 Allergic condition 303065176 Active Not Available [facility] 3 15:41:59 Essential hypertension 58868571 Active 2021 Not Available [facility] 3 15:41:59 Obesity 426535260 Active 2022 Maria Del Carmen Abel RN null, [place] - [facility] 12:13:31 Problem Notes None recorded. Procedures Surgical History Date Name Laterality Status Provider Name and Address Organization Details Recorded Time removal of pilonidal cyst completed Not Available [facility] 01/14/2023 15:40:34 Cholecystectomy completed Not Available [facility] 01/14/2023 15:40:34 Imaging Results None recorded. Procedure Notes None recorded. Medical Equipment None Reported. Allergies Allergen ID Allergen Name Allergen Category Reaction Reaction Severity Criticality Documentation Date Start Date Code Code System Note Provider Name and Address Organization Details Recorded Time 13323 lisinopri l medicatio n cough Not available Not available 01/14/2023 66025 RxNorm Not Available [facility] 15:44:20 Medications Name Sig Start Date Stop Date Status Note LastModified by Organization Details LastModified Time hydrocodone 5 mg-acetamin ophen 325 mg tablet 01/29 completed Not Available Not Available Not Available topiramate 25 mg tablet Take 1 tablet twice a day by oral route. 06/11 completed Not Available Not Available Not Available phentermine 37.5 mg tablet Take by oral route for 30 days. 06/11 completed Not Available Not Available Not Available cephalexin 500 mg capsule 01/29 completed Not Available Not Available Not Available lisinopril 10 mg tablet TAKE 1 TABLET DAILY active Not Available Not Available No t Available losartan 25 mg tablet TAKE 1 TABLET DAILY active Not Available Not Available No t Available zolpidem 5 mg tablet one tablet hs 08/12 completed Not Available Not Available Not Available gabapentin 100 mg capsule 01/29 completed Not Available Not Available Not Available zolpidem 10 mg tablet TAKE 1 TABLET DAILY AT BEDTIME NEEDED active Not Available Not Available No t Available fluticasone propionate 50 mcg/actuati on nasal spray,suspe nsion 08/12 completed Not Available Not Available Not Available amoxicillin 875 mg-potassiu m clavulanate 125 mg tablet 01/29 completed Not Available Not Available Not Available Flovent HFA 110 mcg/actuati on aerosol inhaler 05/29 completed Not Available Not Available Not Available sildenafil (pulmonary hypertensio n) 20 mg tablet Take 2 tablets by mouth one hour prior to sex as needed. 05/29 completed Not Available Not Available Not Available ProAir HFA 90 mcg/actuati on aerosol inhaler Inhale 2 puffs every 4 hours by inhalatio n route. active Not Available Not Available No t Available [facility] 180 mg tablet Take 1 tablet every day by oral route as needed. 2020 active Not Available Not Available Not Avai lable EpiPen 2-Nicolas 0.3 mg/0.3 mL injection, auto-inject or 01/29 completed Not Available Not Available Not Available Contrave 8 mg-90 mg tablet,exte nded release active Not Available Not Available Not Available Wegovy 0.25 mg/0.5 mL subcutaneou s pen injector inject 0.25mg weekly for 4wks then go to 0.5mg weekly 2022 active Not Available Not Available Not Avai lable Vitals Date Recorded Body mass index (BMI) Body height Heart rate Body temperature Body weight Systolic blood pressure Diastolic blood pressure Provider Name and Address Organization Details Last Updated DateTime 1 43.5 kg/m2 180.34 cm 72 /min 97.4 [degF] 444165. 82 g 132 mm[Hg] 78 mm[Hg] Not Available [facility] 3 15:41:16 Date Recorded Body mass index (BMI) Body height Heart rate Body temperature Body weight Systolic blood pressure Diastolic blood pressure Provider Name and Address Organization Details Last Updated DateTime 2 38.8 kg/m2 180.34 cm 62 /min 96.6 [degF] 884996. 68 g 142 mm[Hg] 90 mm[Hg] Not Available [facility] 3 15:41:16 Date Recorded Body mass index (BMI) Body height Heart rate Body temperature Body weight Systolic blood pressure Diastolic blood pressure Provider Name and Address Organization Details Last Updated DateTime 3 39.1 kg/m2 180.34 cm 66 /min 97.8 [degF] 871754. 86 g 130 mm[Hg] 82 mm[Hg] Not Available [facility] 3 15:41:16 Date Recorded Body height Body mass index (BMI) Body weight Body temperature Heart rate Systolic blood pressure Diastolic blood pressure Provider Name and Address Organization Details Last Updated DateTime 3 180.34 cm 39.5 kg/m2 467017. 08 g 97.9 [degF] 80 /min 154 mm[Hg] 88 mm[Hg] Elisa Pruett MA [employer] 3 16:38:33 Date Recorded Body height Body mass index (BMI) Body weight Body temperature Heart rate Oxygen saturation Oxygen saturation in Arterial blood by Pulse oximetry Systolic blood pressure Diastolic blood pressure Provider Name and Address Organization Details Last Updated DateTime 4 180.34 cm 41.1 kg/m2 129011. 75 g 97.3 [degF] 68 /min 96 % 96 % 126 mm[Hg] 78 mm[Hg] Katerin hebert CMA [employer] 4 16:49:04 Social History Question Answer Notes LastModified by Organizat ion Details LastModified Time Tobacco Smoking Status Never Smoker Not Available [facility] 01/14/2023 15:40:28 Do You Have An Advance Directive? Yes [id number] Information not available 01/14/2023 What Is Your Level Of Alcohol Consumption? Moderate [id number] Information not available 01/14/2023 What Is Your Level Of Caffeine Consumption? Moderate [id number] Information not available 01/14/2023 How Much Tobacco Do You Chew? None [id number] Information not available 01/14/2023 In The 14 Days Before Symptom Onset, Have You Had Close Contact With A Laboratory-confi rmed COVID-19 While That Case Was Ill? No [id number] Information not available 01/14/2023 In The 14 Days Before Symptom Onset, Have You Had Close Contact With A Person Who Is Under Investigation For COVID-19 While That Person Was Ill? No [id number] Information not available 01/14/2023 What Type Of Diet Are You Following? REGULAR [id number] Information not available 01/14/2023 Which Illicit Or Recreational Drugs Have You Used? None [id number] Information not available 01/14/2023 Do You Or Have You Ever Used E-cigarettes Or Vape? Never Used Electronic Cigarettes [id number] Information not available 01/14/2023 What Is The Highest Grade Or Level Of School You Have Completed Or The Highest Degree You Have Received? 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 No Information not available 06/11/2023 What Is The Fluoride Status Of Your Home? Unknown Information not available 06/11/2023 Are There Any Guns Present In Your Home? No [id number] Information not available 01/14/2023 Do You Use Insect Repellent Routinely? No Information not available 06/11/2023 Where Do You Live? [facility] Information not available 06/11/2023 What Was The Date Of Your Most Recent Tobacco Screening? 06/11/2023 Information not available 06/11/2023 Do You Have Any Pets? Yes Information not available 06/11/2023 Do You Have Smoke And Carbon Monoxide Detectors In Your Home? Yes Information not available 06/11/2023 Are You Passively Exposed To Smoke? No Information not available 06/11/2023 Do You Or Have You Ever Used Smokeless Tobacco? Never Used Smokeless Tobacco [id number].[id number] Information not available 01/14/2023 Are There Any Smokers In Your House? No Information not available 06/11/2023 How Much Tobacco Do You Smoke? No [id number] Information not available 01/14/2023 Do You Use Any Illicit Or Recreational Drugs? No Information not available 06/11/2023 Do You Use Sunscreen Routinely? Yes [id number].[id number] Information not available 01/14/2023 How Many Years Have You Smoked Tobacco? 0 [id number].17247 [id number] Information not available 01/14/2023 Have You Recently Traveled Abroad? No Information not available 06/11/2023 Sex: Unknown Functional Status Question Answer Note LastModified by Organizat ion Details LastModified Time What is your exercise level? Heavy [id number] Information not available 01/14/2023 Mental Status None recorded. Family History Nothing Reported Notes:pt adopted Medical History Condition Response BLINDNESS N NERVE DISEASE N RHEUMATIC FEVER N BLADDER PROBLEMS N KIDNEY STONES N OTHER # 1 Y POLIO N LUNG DISEASE/DISORDER N RADIATION / CHEMOTHERAPY N COPD N Other # 2 N BLOOD DISEASES N SURGERY N EAR OR HEARING PROBLEMS N MUMPS N BOWEL PROBLEMS N DEPRESSION (INCLUDING POST ) N STROKE/TIA N ULCERS N BENIGN PROSTATIC HYPERPLASIA N MEASLES N MYOCARDIAL INFARCTION N OBESITY N GERD/NAUSEA N ANEURYSM N URINARY/BLADDER/KIDNEY PROBLEMS N INPATIENT PSYCH CARE N CORONARY ARTERY DISEASE (CAD) N ADDICTION CONCERNS N Impotence N ENDOMETRIOSIS N USE OF BLOOD THINNERS N SKIN PROBLEMS N GASTROINTESTINAL DISORDER N PERIPHERAL VASCULAR DISEASE N MUSCLE,JOINT OR BONE PROBLEMS N GASTROINTESTINAL BLEEDING N BLOOD CLOTS N ASTHMA N CATARACTS N ERECTILE DYSFUNCTION N VARICOSITIES N GI PROBLEMS N Low Testosterone N INFERTILITY N AIDS/HIV N LIVER DISEASE N MALE HYPOGONADISM N HYPERTENSION N Deficiency N ANXIETY DISORDER N BLOOD TRANSFUSION N ANEMIA/BLOOD DISORDER N CHRONIC EAR INFECTIONS N BRONCHITIS N TUBERCULOSIS N GLAUCOMA N FOOT PROBLEM N DIVERTICULITIS N SLEEP APNEA N CHICKENPOX N INFECTIOUS DISEASE N PROSTATE N HEART ARRHYTHMIA N INSOMNIA N HIGH CHOLESTEROL / HYPERLIPIDEMIA N HYPERTHYROIDISM N EYE PROBLEMS N NEUROLOGICAL PROBLEMS N EDEMA N CHRONIC PAIN SYNDROME N HYPOTHYROIDISM N CONSTIPATION N CAROTID BLOCKAGE N BACK / NECK PROBLEMS N ATHEROSCLEROSIS N BREAST PROBLEMS N DIALYSIS N ECZEMA N OSTEOPOROSIS N ARTHRITIS N APPENDICITIS N DIABETES, TYPE N BAD TEETH N ENT N HEARTBURN / REFLUX N AUTISM SPECTRUM DISORDER (ASD) N HEPATITIS / LIVER DISEASE N PULMONARY DISEASE N GOUT N SLEEP DISORDER N ALZHEIMER'S DISEASE N Brain Problems N HERPES N DEMENTIA N SEIZURES/EPILEPSY N HEADACHES/MIGRAINES N VASCULAR DISEASE N PACEMAKER N Blood Disorder N DIZZINESS N KIDNEY DISEASE N HEART DISEASE/HEART PROBLEMS N MULTIPLE SCLEROSIS N CARDIAC ARRHYTHMIA N CANCER: SPECIFY N ANESTHESIA COMPLICATIONS N Gall Stones N ATRIAL FIBRILLATION N PULMONARY EMBOLISM N AUTOIMMUNE DISEASE N Immunizations Vaccine Type Date Status Note Provider Nam e and Address Organization Details Recorded Time COVID-19, mRNA, LNP-S, PF, 100 mcg/0.5mL dose or 50 mcg/0.25mL dose 1 completed Not Available [facility] 01/14/2023 15:44:15 COVID-19, mRNA, LNP-S, PF, 100 mcg/0.5mL dose or 50 mcg/0.25mL dose 1 completed Not Available [facility] 01/14/2023 15:44:15 Influenza, split virus, quadrivalent, preservative 0 completed Not Available [facility] 01/14/2023 15:44:15 HPV9 9 completed Not Available [facility] 01/14/2023 15:44:16 Past Encounters Encounter ID Performer Location Encounter Start Date Encounter Closed Date Diagnosis/Indication Diagnosis SNOMED-CT Code Diagnosis ICD10 Code Diagnosis Note [id number] [facility] [place] [address] [facility] [address] [address] 01/29/2021 00:00:00 01/29/2021 23:30:01 [id number] [facility] [place] [address] [facility] [address], [place] [address] 05/29/2022 00:00:00 05/31/2022 18:37:03 [id number] [facility] [address] [facility] [address] [place] [address] 12/11/2022 00:00:00 12/20/2022 21:08:50 [id number] Barney Kingston MD [facility] [address] [facility] [address] [place] [address] 06/11/2023 16:26:19 06/11/2023 17:31:54 Essential hypertension 31320878 I10 Obesity 799442904 E66.9 Insomnia 456830853 G47.0 0 [id number] Barney Kingston MD [facility] [address] [facility] [address] [address] 12/09/2023 15:45:59 12/09/2023 17:34:21 Insomnia 780235683 G47.00 Essential hypertension 33596428 I10 Obesity 185262568 E66.9 Health Concerns Section Related Observation LastModified by Organization Detai ls LastModified Time None Recorded Concern Status LastModified by Organization Details LastModified Time None Recorded Advance Directives Directive Y: Payers Encounter Date Sequence Insurance Name Policy Number Policy Chen Covered Member ID Chen Member ID Guarantor Name 06/11/2023 1 [facility] () Willard Cedeño [id number] Willard Cedeño 12/09/2023 1 [facility] () Willard Cedeño [id number] Willard Cedeño Notes Date Note Type Note Provider Name and Address Organization Details Recorded Time 06/11/2023 text/html insomnia uses Am no sparingly no side effectsObesity struggle with weightHypertension blood pressures are good at home Barney Kingston MD [address], [place], [address], [employer] 06/11/2023 21:03:08 12/09/2023 text/html Hypertension no headache no dizzinessWeight gain and obesity despite weight loss surgery in his not had luck with dietingInsomnia doing fine on current regimen without side effects Barney Kingston MD [address], [place], [address], [employer] 12/15/2023 22:28:11
--- NOTE | 2024-12-09 16:28 | P.SLEEP_ITS ---
Sleep Study - Home Unattended Date of Study: 12/06/24 Ordering Provider: Barney Kingston, Interpreting Provider: Alize Fraire MD Home Sleep Study Type: Watch PAT Height: 1.8 m Weight: 142.882 kg Body Mass Index: 43.9 Neck Circumference (inches): 19 [place]: 11 Reason for Sleep Study Hypersomnolence Sleep History Willard Cedeño is a 44-year-old man with difficulty falling asleep and staying asleep. He has a history of mild obstructive sleep apnea in 2011 however is not on treatment now. He has nighttime awakenings. He has zolpidem prescribed to help him get to sleep. He did not use this sedative hypnotic on the night of the home sleep test. He is not anxious about his sleep. He wakes with a dry mouth and he has nocturnal heartburn. He does not wake at night to go to the bathroom. He is not refreshed on waking, he is tired and sleepy during the day and he has an urge to fall asleep during the day however he does not feel drowsy while driving. He does not have problems with uncomfortable feelings in his legs at night nor does he kick excessively at night. He does not clench his jaws or grind his teeth at night. He usually awakens in the morning using an alarm at 7:00 a.m.. He often feels more alert in the evening compared to the morning. He has an alcoholic beverage 1 or 2 nights out of the week. His usual alcohol consumption is 2 glasses. He drinks caffeine 1-2 cups daily. He exerc ises 3 or 4 nights out of the week, the usual time is 7:00 p.m.. He does not work rotating shifts. He does not act out his dreams. He does not sleep walk. His normal sleep schedule is 10:00 p.m. on days before he works, falling asleep within an hour. He spent 7 hours in bed, 5 hours of sleep. On days off, his bedtime is 11:00 p.m. falling asleep within 2 hours spending, 9 hours in bed and 7 of those hours of asleep. His sleep is a little more restorative on days off compared to sleep on during the work week. He takes planned naps in the afternoon, a nap may last 1-2 hours however naps are not restorative. Habits: Tobacco: never smoker Caffeine: 1-2 daily Alcohol : 2 glasses on 1-2 nights in a week Recreational substances: none PMFSH Past Medical History Medical History (Updated 12/09/24 @ 17:12 by Alize Fraire MD) Low testosterone Obesity BMI 43.9 12/06/2024 Elevated liver enzymes Fatigue Essential hypertension Primary insomnia Hyperlipidemia Surgical History Surgical History (Updated 12/09/24 @ 17:12 by Alize Fraire MD) Status post surgical removal of pilonidal cyst Hx of cholecystectomy Social History Social History (Updated 12/09/24 @ 17:13 by Alize Fraire MD) Smoking status: Never smoker Alcohol intake: current Substance use: never Medications Medications: Atorvastatin 10 mg daily Losartan 25 mg daily Testosterone supra Mark 200 mg per mill, 1 injection every 2 weeks Zolpidem 10 mg HS Sleep Procedure The sleep study was completed using [employer] a technically adequate device with seven channels: peripheral arterial tone, actigraphy, body position, snore, respiratory movement, pulse oximetry, sleep staging, and heart rate. Prior to using the device, the patient received verbal and written instructions for its application and was provided with the help desk phone number for additional telephonic instruction with 24-hour availability of qualified personnel to answer questions. Sleep Architecture The total recording time is 7 hours 34 minutes. The total sleep time is 7 hours 16 minutes. Sleep latency is 13 minutes. REM latency is 69 minutes. The patient had 1 episode of waking. Sleep architecture shows 15.6% % deep sleep, 60% light sleep, and 24.4% stage REM. The patient spent 329.2 minutes, 75.5 % of total sleep time in the supine position. Sleep efficiency was 96%. Respiratory Analysis The overall AHI is 53.3 (pAHI 3%). The central AHI is 3.8. The REM AHI was 73.4. The supine AHI was 54.9, the non-supine AHI was 47.9. There was no evidence of Chilo-Gonzalez respirations. Oximetry Data The oxygen desaturation index is 41.6 (PAULY 4%). The mean saturation is 93% %, the lowest saturation is 66%, and the patient spent 33.9 minutes below 88% satu ration,7.8% of sleep time. Snoring Profile Snoring was loud and present through most of the night, average intensity 46 decibels, patient snored above 45 decibels for 194.7 minutes, 44.6% of sleep time. Cardiac Profile The average pulse is 63 beats per minute, the lowest pulse is 45 beats per doug te, and the highest pulse is 104 beats per minute. Cardiac rhythm analysis in sleep does not show suspected atrial fibrillation. Assessment and Plan Assessment and Plan (1) Obstructive sleep apnea: Code(s): G47.33 - Obstructive sleep apnea (adult) (pediatric) Status: Acute Assessment and Plan: This home sleep test using WatchPat on 12/06/2024 shows severe obstructive sleep apnea syndrome, the apnea-hypopnea index using a 4% criteria is 42.5 with an oxygen desaturation index of 41.6, desaturation to 66%, 33.9 minutes spent below 88% saturation, and persistent loud snoring. The patient has severe obstructive sleep apnea and severe hypoxemia which is too severe and prolonged to effectively treat using auto PAP. This patient should be scheduled for an in- lab full night CPAP titration as soon as this is possible. The patient should be cautioned not to nap on the day of the study. He should have a sleep aid available for use, if needed, to initiate and maintain sleep. Ideally he should be awake for 12 hours prior to testing. Effective sleep aids to consider include Ambien 5 mg to 10 mg, or Lunesta 2 mg to 3 mg. BMI is 43. Weight management is advised. Clinical data suggests that weight loss of 10% can reduce the severity of respiratory events and snoring and improve AHI by as much as 25%. He exercises at 7:00 pm. His reported bedtime is 10:00 pm. This appears to give him 2 hours to fall asleep, and for some people, this is enough time to become sleepy. Exercise increases core body temperature which increases alertness. It also increases release of some neurotransmitters which cause increased alertness. If he has problems getting to sleep after getting in PAP for his obstructive sleep apnea, consider completing exercise a little earlier in the d ay. Data The data obtained during this sleep study is adequate for interpretation. Certification This sleep study has been reviewed by a board certified sleep medicine physician.
[2024-12-09 18:44] VITALS: BMI 43.9
== END 2024-12-07 13:09 | disposition home or self-care (01) ==
PROVIDERS: PCP Internal Medicine; Visit Provider Internal Medicine
DX: G47.33 Obstructive sleep apnea (adult) (pediatric) (principal)
CPT/HCPCS: 95800

== ENCOUNTER 2024-12-27 08:27 | Outpatient (CLI) | payer OTHER, SELFPAY ==
--- OUTSIDE RECORDS SUMMARY | 2024-12-27 09:01 | XMS_ITS | Data Portability ---
Author Organization [facility] Address [address] [place] [address] Care Team Providers Care Sleeve Fixer Name Role Phone SARAHI KINGSTON Primary Care Provider Unavailabl e Assessment Encounter Date Assessment Date Assessment LastModified by Organization Details LastModified Time 02/26/2024 02/26/2024 Fatigue labs hypertension losartan insomnia zolpidem obesity Contrave. Follow-up 4 months CBC CMP thyroid studies and free and total testosterone [email or web address] Not available 02/27/2024 18:37:52 08/23/2024 08/23/2024 we will try to get him on GLP 1. Blood pressure is controlled. Dyslipidemia continue with statin. Contrave not working he got his blood work drawn this morning we will review it when available see me in 6 months. Patient will benefit from sleep study given fatigue low testosterone insomnia [email or web address] Not available 11/08/2024 12:05:39 Plan of Treatment Reminders Order Date Submit Date Provider Last Modified By Organization Details Last Modified Time Details Appointments ANY 15 2024 03:15P Andreas Kingston MD Not available Not available Not available Lab lipid panel, serum 2023 024 [place] [facility], [address], [place], [address], 03/18/2024 08:27:22 TSH + free T4, serum 2023 024 [place] [facility], [address], [place], [address], 03/19/2024 11:09:54 T3, free, serum or plasma 2023 024 [place] [facility], [address], [place], [address], 03/19/2024 10:13:15 testoste trini, free + total, serum 2023 024 [facility], [address], [place], [address], 03/23/2024 15:12:55 CBC w/ auto diff 2023 024 [place] [facility], [address], [place], [address], 03/18/2024 00:01:37 CMP, serum or plasma 2023 024 [facility], [address], [place], [address], 03/18/2024 00:01:35 Referral None recorded . Procedures None recorded . Surgeries None recorded . Imaging None recorded . Medication Orders None recorded . Patient TargetsNo targets recorded. Patient Instructions Encounter Date Encounter Id Patient Instructions Last Modified By Organization Details Last Modified Time 08/23/2024 [id number] A healthy lifestyle: care instructions [email or web address] Not available 08/23/2024 21:15:34 Reason for Referral None Reported. Results Created Date Observation Date Name Description Value Unit Range Abnormal Flag Note LastModifiedBy Organization Detail LastModifiedTime 03/17/2003/17/2024 COMPR EHENS TORRES METAB OLIC PANEL sodium 141 mmol/ L 134-14 4 normal Not Available [facility] (Lab) [address] [place], [address], 03/18/2024 00:01:35 03/17/20 24 03/17/2024 COMPR EHENS TORRES METAB OLIC PANEL potassium 4.4 mmol/ L 3.5-5. 2 normal Not Available [facility] (Lab) [address], [place], [address], 03/18/2024 00:01:35 03/17/20 24 03/17/2024 COMPR EHENS TORRES METAB OLIC PANEL chloride 106 mmol/ L 96-106 normal Not Available [facility] (Lab) [address] [place], [address], 03/18/2024 00:01:35 03/17/20 24 03/17/2024 COMPR EHENS TORRES METAB OLIC PANEL carbon dioxide 23 mmol/ L 20-29 normal Not Available [facility] (Lab) [address] [place], [address], 03/18/2024 00:01:35 03/17/20 24 03/17/2024 COMPR EHENS TORRES METAB OLIC PANEL anion gap 17.0 mmol/ L Not Available [facility] (Lab) [address], [place], [address], 03/18/2024 00:01:35 03/17/20 24 03/17/2024 COMPR EHENS TORRES METAB OLIC PANEL blood urea nitrogen 19 mg/dL 6-24 normal Not Available [facility] (Lab) [address] [place], [address], 03/18/2024 00:01:35 03/17/20 24 03/17/2024 COMPR EHENS TORRES METAB OLIC PANEL creatinine 1.14 mg/dL 0.76-1 .27 normal Not Available [facility] (Lab) [address] [place], [address], 03/18/2024 00:01:35 03/17/20 24 03/17/2024 COMPR EHENS TORRES METAB OLIC PANEL glomerular filtration rate 82 mL/mi n/1 Not Available [facility] (Lab) [address] [place], [address], 03/18/2024 00:01:35 03/17/20 24 03/17/2024 COMPR EHENS TORRES METAB OLIC PANEL BUN creatinine ratio 17 9-20 normal Not Available [facility] (Lab) [address] [place], [address], 03/18/2024 00:01:35 03/17/20 24 03/17/2024 COMPR EHENS TORRES METAB OLIC PANEL glucose 106 mg/dL 70-99 high Not Available [facility] (Lab) [address] [place], [address], 03/18/2024 00:01:35 03/17/20 24 03/17/2024 COMPR EHENS TORRES METAB OLIC PANEL osmolality calculated 284 275-29 5 normal Not Available [facility] (Lab) [address] [place], [address], 03/18/2024 00:01:35 03/17/20 24 03/17/2024 COMPR EHENS TORRES METAB OLIC PANEL calcium 9.7 mg/dL 8.7-10 .2 normal Not Available [facility] (Lab) [address], [place], [address], 03/18/2024 00:01:35 03/17/20 24 03/17/2024 COMPR EHENS TORRES METAB OLIC PANEL bilirubin total 0.6 mg/dL 0.0-1. 2 normal Not Available [facility] (Lab) [address] [place], [address], 03/18/2024 00:01:35 03/17/20 24 03/17/2024 COMPR EHENS TORRES METAB OLIC PANEL aspartate amino transferase 37 IU/L 0-40 normal Not Available [facility] (Lab) [address] [place], [address], 03/18/2024 00:01:35 03/17/20 24 03/17/2024 COMPR EHENS TORRES METAB OLIC PANEL alanine aminotransfe rase 60 IU/L 0-[address] [facility] (Lab) [address] [place], [address], 03/18/2024 00:01:35 03/17/20 24 03/17/2024 COMPR EHENS TORRES METAB OLIC PANEL total protein 7.3 g/dL 6.0-8. 5 normal Not Available [facility] (Lab) [address], [place], [address], 03/18/2024 00:01:35 03/17/20 24 03/17/2024 COMPR EHENS TORRES METAB OLIC PANEL albumin level 4.7 g/dL 4.1-5. 1 normal Not Available [facility] (Lab) [address] [place], [address], 03/18/2024 00:01:35 03/17/20 24 03/17/2024 COMPR EHENS TORRES METAB OLIC PANEL globulin 2.6 g/dL 1.5-4. 5 normal Not Available [facility] (Lab) [address], [place], [address], 03/18/2024 00:01:35 03/17/20 24 03/17/2024 COMPR EHENS TORRES METAB OLIC PANEL albumin globulin ratio 2.0 1.2-2. 2 normal Not Available [facility] (Lab) [address], [place], [address], 03/18/2024 00:01:35 03/17/20 24 03/17/2024 COMPR EHENS TORRES METAB OLIC PANEL alkaline phosphatase 72 IU/L 44-121 normal Not Available [facility] (Lab) [address], [place], [address], 03/18/2024 00:01:35 03/17/20 24 03/17/2024 LIPID PANEL triglyceride s 213 mg/dL 0-149 high Not Available [facility] (Lab) [address], [place], [address], 03/18/2024 00:01:36 03/17/20 24 03/17/2024 LIPID PANEL cholesterol 233 mg/dL 100-19 9 high Not Available [facility] (Lab) [address], [place], [address], 03/18/2024 00:01:36 03/17/20 24 03/17/2024 LIPID PANEL LDL cholesterol 151 mg/dL 0-99 high Not Available [facility] [address] [place], [address], 03/18/2024 00:01:36 03/17/20 24 03/17/2024 LIPID PANEL HDL cholesterol 41 mg/dL 40-999 normal Not Available [facility]) [address] [place], [address], 03/18/2024 00:01:36 03/17/20 24 03/17/2024 LIPID PANEL chol HDL ratio 6.0 mg/dL 0-5.0 high Not Available [facility] ([facility]) [address], [place], [address], 03/18/2024 00:01:36 03/17/20 24 03/17/2024 COMPL ETE BLOOD COUNT AUTO DIFF white blood count 6.0 x10e3 /uL 3.4-10 .8 normal Not Available [facility] (Lab) [address], [place], [address], 03/18/2024 00:01:37 03/17/20 24 03/17/2024 COMPL ETE BLOOD COUNT AUTO DIFF red blood count 4.70 x10e6 /uL 4.14-5 .80 normal Not Available [facility] (Lab) [address], [place], [address], 03/18/2024 00:01:37 03/17/20 24 03/17/2024 COMPL ETE BLOOD COUNT AUTO DIFF hemoglobin 14.5 g/dL 13.0-1 7.7 normal Not Available [facility] (Lab) [address] [place], [address], 03/18/2024 00:01:37 03/17/20 24 03/17/2024 COMPL ETE BLOOD COUNT AUTO DIFF hematocrit 42.5 % 37.5-5 1.0 normal Not Available [facility] (Lab) [address] [place], [address], 03/18/2024 00:01:37 03/17/20 24 03/17/2024 COMPL ETE BLOOD COUNT AUTO DIFF mean corpuscular volume 90 fL 79-97 normal Not Available [facility] (Lab) [address] [place], [address], 03/18/2024 00:01:37 03/17/20 24 03/17/2024 COMPL ETE BLOOD COUNT AUTO DIFF mean corpuscular hemoglobin 30.9 pg 26.6-3 3.0 normal Not Available [facility] (Lab) [address] [place], [address], 03/18/2024 00:01:37 03/17/20 24 03/17/2024 COMPL ETE BLOOD COUNT AUTO DIFF mean corpuscular HGB conc 34.1 g/dL 31.5-3 5.7 normal Not Available [facility] (Lab) [address] [place], [address], 03/18/2024 00:01:37 03/17/20 24 03/17/2024 COMPL ETE BLOOD COUNT AUTO DIFF red cell distribution width 12.4 % 11.5-1 4.5 normal Not Available [facility] (Lab) [address] [place], [address], 03/18/2024 00:01:37 03/17/20 24 03/17/2024 COMPL ETE BLOOD COUNT AUTO DIFF platelet count 329 x10e3 /uL 150-45 0 normal Not Available [facility] (Lab) [address] [place], [address], 03/18/2024 00:01:37 03/17/20 24 03/17/2024 COMPL ETE BLOOD COUNT AUTO DIFF mean platelet volume 9.8 fL 8.9-12 .7 normal Not Available [facility] (Lab) [address] [place], [address], 03/18/2024 00:01:37 03/17/20 24 03/17/2024 COMPL ETE BLOOD COUNT AUTO DIFF immature granulocytes pct auto 0.5 % not estb. Not Available [facility] (Lab) [address] [facility], [place], [address], 03/18/2024 00:01:37 03/17/20 24 03/17/2024 COMPL ETE BLOOD COUNT AUTO DIFF neutrophils percent auto 51 % not estb. Not Available [facility] (Lab) [address] [place], [address], 03/18/2024 00:01:37 03/17/20 24 03/17/2024 COMPL ETE BLOOD COUNT AUTO DIFF lymphocytes percent auto 36 % not estb. Not Available [facility] (Lab) [address] [place], [address], 03/18/2024 00:01:37 03/17/20 24 03/17/2024 COMPL ETE BLOOD COUNT AUTO DIFF monocytes percent auto 10 % not estb. Not Available [facility] (Lab) [address] [facility], [place], [address], 03/18/2024 00:01:37 03/17/20 24 03/17/2024 COMPL ETE BLOOD COUNT AUTO DIFF eosinophils percent auto 2 % not estb. Not Available [facility] (Lab) [address] [facility], [place], [address], 03/18/2024 00:01:37 03/17/20 24 03/17/2024 COMPL ETE BLOOD COUNT AUTO DIFF basophils percent auto 1 % not estb. Not Available [facility] (Lab) [address] [facility], [place], [address], 03/18/2024 00:01:37 03/17/20 24 03/17/2024 COMPL ETE BLOOD COUNT AUTO DIFF neutrophils absolute auto 3.0 x10e3 /uL 1.4-7. 0 normal Not Available [facility] (Lab) [address] [facility], [place], [address], 03/18/2024 00:01:37 03/17/20 24 03/17/2024 COMPL ETE BLOOD COUNT AUTO DIFF immature granulocytes abs auto 0.0 x10e3 /uL 0.0-0. 1 normal Not Available [facility] (Lab) [address] [place], [address], 03/18/2024 00:01:37 03/17/20 24 03/17/2024 COMPL ETE BLOOD COUNT AUTO DIFF lymphocytes absolute auto 2.2 x10e3 /uL 0.7-3. 1 normal Not Available [facility] (Lab) [address] [place], [address], 03/18/2024 00:01:37 03/17/20 24 03/17/2024 COMPL ETE BLOOD COUNT AUTO DIFF monocytes absolute auto 0.6 x10e3 /uL 0.1-0. 9 normal Not Available [facility] (Lab) [address] [place], [address], 03/18/2024 00:01:37 03/17/20 24 03/17/2024 COMPL ETE BLOOD COUNT AUTO DIFF eosinophils absolute auto 0.1 x10e3 /uL 0.0-0. 4 normal Not Available [facility] (Lab) [address] [place], [address], 03/18/2024 00:01:37 03/17/20 24 03/17/2024 COMPL ETE BLOOD COUNT AUTO DIFF basophils absolute auto 0.0 x10e3 /uL 0.0-0. 2 normal Not Available [facility] (Lab) [address] [place], [address], 03/18/2024 00:01:37 03/17/20 24 03/17/2024 COMPL ETE BLOOD COUNT AUTO DIFF nucleated red blood cells auto 0 % 0-0 normal Not Available [facility] (Lab) [address] [place], [address], 03/18/2024 00:01:37 03/17/20 24 03/19/2024 TRIIO DOTHY DAVID E (T3), FREE triiodothyro nine (T3), free 3.5 pg/mL 2.0-4. 4 [facility] at: [facility] [address] [place] [address] Lab Direc tor: Buddy jerez PhD, Phone : [phone] Not Available [facility] (Lab) [address] [place], [address], 03/19/2024 11:09:54 03/17/20 24 03/19/2024 TSH+F REE T4 TSH 1.760 uIU/m L 0.450- 4.500 Not Available [facility] (Lab) [address] [place], [address], 03/19/2024 11:09:54 03/17/20 24 03/19/2024 TSH+F REE T4 T4,free(dire ct) 1.20 NG/dL 0.82-1 .77 Perfo rmed at: [facility] - [facility] [address] [place] [address] Lab Direc tor: Buddy jerez PhD, Phone : [phone] Not Available [facility] (Lab) [address] [place], [address], 03/19/2024 11:09:54 03/17/20 24 03/23/2024 TESTO STERO NE, FREE/ TOT EQUIL IB testosterone 96 NG/dL 264-91 6 abnormal Adult male refer ence inter neeta is based on a popul ation of healt hy nonob lin males (BMI <30) betwe en 19 and 39 years old. Haydee gamboa et.al . JCEM 2017, 102;1 161-1 173. PMID: 44647 103. Not Available [facility] (Lab) [address] [place], [address], 03/23/2024 15:12:55 03/17/20 24 03/23/2024 TESTO STERO NE, FREE/ TOT EQUIL IB testosterone ,free 3.59 NG/dL 5.00-2 1.00 abnormal Not Available [facility] (Lab) [address] [place], [address], 03/23/2024 15:12:55 03/17/20 24 03/23/2024 TESTO STERO NE, FREE/ TOT EQUIL IB % free testosterone 3.74 % 1.50-4 .20 Perfo rmed at: 01 - [facility] [address] [facility], [place] [address] Lab Direc tor: Buddy jerez PhD, Phone : [phone] Perfo rmed at: 02 - [facility] [address] [facility] [place] [address] Lab Direc tor: Sandee alfaro MD, Phone : [phone] Not Available [facility] (Lab) [address] [place], [address], 03/23/2024 15:12:55 04/19/20 24 04/19/2024 COMPR EHENS TORRES METAB OLIC PANEL sodium 141 mmol/ L 134-14 4 normal Not Available [facility] (Lab) [address] [place], [address], 04/19/2024 21:18:11 04/19/20 24 04/19/2024 COMPR EHENS TORRES METAB OLIC PANEL potassium 4.7 mmol/ L 3.5-5. 2 normal Not Available [facility] (Lab) [address] [facility], [place], [address], 04/19/2024 21:18:11 04/19/20 24 04/19/2024 COMPR EHENS TORRES METAB OLIC PANEL chloride 104 mmol/ L 96-106 normal Not Available [facility] (Lab) [address] [place], [address], 04/19/2024 21:18:11 04/19/20 24 04/19/2024 COMPR EHENS TORRES METAB OLIC PANEL carbon dioxide 21 mmol/ L 20-29 normal Not Available [facility] (Lab) [address] [place], [address], 04/19/2024 21:18:11 04/19/20 24 04/19/2024 COMPR EHENS TORRES METAB OLIC PANEL anion gap 21.0 mmol/ L Not Available [facility] (Lab) [address] [place], [address], 04/19/2024 21:18:11 04/19/20 24 04/19/2024 COMPR EHENS TORRES METAB OLIC PANEL blood urea nitrogen 19 mg/dL 6-[address] [facility] (Lab) [address] [place], [address], 04/19/2024 21:18:11 04/19/20 24 04/19/2024 COMPR EHENS TORRES METAB OLIC PANEL creatinine 1.10 mg/dL 0.76-1 .27 normal Not Available [facility] (Lab) [address], [place], [address], 04/19/2024 21:18:11 04/19/20 24 04/19/2024 COMPR EHENS TORRES METAB OLIC PANEL glomerular filtration rate 86 mL/mi n/1 Not Available [facility] (Lab) [address] [place], [address], 04/19/2024 21:18:11 04/19/20 24 04/19/2024 COMPR EHENS TORRES METAB OLIC PANEL BUN creatinine ratio 17 9-[address] [facility] (Lab) [address] [place], [address], 04/19/2024 21:18:11 04/19/20 24 04/19/2024 COMPR EHENS TORRES METAB OLIC PANEL glucose 109 mg/dL 70-99 high Not Available [facility] (Lab) [address] [place], [address], 04/19/2024 21:18:11 04/19/20 24 04/19/2024 COMPR EHENS TORRES METAB OLIC PANEL osmolality calculated 284 275-29 5 normal Not Available [facility] (Lab) [address] [place], [address], 04/19/2024 21:18:11 04/19/20 24 04/19/2024 COMPR EHENS TORRES METAB OLIC PANEL calcium 10.0 mg/dL 8.7-10 .2 normal Not Available [facility] (Lab) [address], [place], [address], 04/19/2024 21:18:11 04/19/20 24 04/19/2024 COMPR EHENS TORRES METAB OLIC PANEL bilirubin total 0.5 mg/dL 0.0-1. 2 normal Not Available [facility] (Lab) [address], [place], [address], 04/19/2024 21:18:11 04/19/20 24 04/19/2024 COMPR EHENS TORRES METAB OLIC PANEL aspartate amino transferase 30 IU/L 0-40 normal Not Available [facility] (Lab) [address] [place], [address], 04/19/2024 21:18:11 04/19/20 24 04/19/2024 COMPR EHENS TORRES METAB OLIC PANEL alanine aminotransfe rase 58 IU/L 0-[address] [facility] (Lab) [address] [place], [address], 04/19/2024 21:18:11 04/19/20 24 04/19/2024 COMPR EHENS TORRES METAB OLIC PANEL total protein 7.7 g/dL 6.0-8. 5 normal Not Available [facility] (Lab) [address], [place], [address], 04/19/2024 21:18:11 04/19/20 24 04/19/2024 COMPR EHENS TORRES METAB OLIC PANEL albumin level 4.8 g/dL 4.1-5. 1 normal Not Available [facility] (Lab) [address] [place], [address], 04/19/2024 21:18:11 04/19/20 24 04/19/2024 COMPR EHENS TORRES METAB OLIC PANEL globulin 2.9 g/dL 1.5-4. 5 normal Not Available [facility] (Lab) [address] [place], [address], 04/19/2024 21:18:11 04/19/20 24 04/19/2024 COMPR EHENS TORRES METAB OLIC PANEL albumin globulin ratio 2.0 1.2-2. 2 normal Not Available [facility] (Lab) [address] [place], [address], 04/19/2024 21:18:11 04/19/20 24 04/19/2024 COMPR EHENS TORRES METAB OLIC PANEL alkaline phosphatase 78 IU/L 44-121 normal Not Available [facility] (Lab) [address], [place], [address], 04/19/2024 21:18:11 04/19/20 24 04/19/2024 COMPL ETE BLOOD COUNT AUTO DIFF white blood count 6.9 x10e3 /uL 3.4-10 .8 normal Not Available [facility] (Lab) [address], [place], [address], 04/19/2024 21:54:24 04/19/20 24 04/19/2024 COMPL ETE BLOOD COUNT AUTO DIFF red blood count 4.92 x10e6 /uL 4.14-5 .80 normal Not Available [facility] (Lab) [address] [place], [address], 04/19/2024 21:54:24 04/19/20 24 04/19/2024 COMPL ETE BLOOD COUNT AUTO DIFF hemoglobin 15.1 g/dL 13.0-1 7.7 normal Not Available [facility] (Lab) [address] [place], [address], 04/19/2024 21:54:24 04/19/20 24 04/19/2024 COMPL ETE BLOOD COUNT AUTO DIFF hematocrit 44.1 % 37.5-5 1.0 normal Not Available [facility] (Lab) [address] [place], [address], 04/19/2024 21:54:24 04/19/20 24 04/19/2024 COMPL ETE BLOOD COUNT AUTO DIFF mean corpuscular volume 90 fL 79-97 normal Not Available [facility] (Lab) [address] [facility], [place], [address], 04/19/2024 21:54:24 04/19/20 24 04/19/2024 COMPL ETE BLOOD COUNT AUTO DIFF mean corpuscular hemoglobin 30.7 pg 26.6-3 3.0 normal Not Available [facility] (Lab) [address] [place], [address], 04/19/2024 21:54:24 04/19/20 24 04/19/2024 COMPL ETE BLOOD COUNT AUTO DIFF mean corpuscular HGB conc 34.2 g/dL 31.5-3 5.7 normal Not Available [facility] (Lab) [address] [place], [address], 04/19/2024 21:54:24 04/19/20 24 04/19/2024 COMPL ETE BLOOD COUNT AUTO DIFF red cell distribution width 12.5 % 11.5-1 4.5 normal Not Available [facility] (Lab) [address] [facility], [place], [address], 04/19/2024 21:54:24 04/19/20 24 04/19/2024 COMPL ETE BLOOD COUNT AUTO DIFF platelet count 309 x10e3 /uL 150-45 0 normal Not Available [facility] (Lab) [address] [place], [address], 04/19/2024 21:54:24 04/19/20 24 04/19/2024 COMPL ETE BLOOD COUNT AUTO DIFF mean platelet volume 10.2 fL 8.9-12 .7 normal Not Available [facility] (Lab) [address] [place], [address], 04/19/2024 21:54:24 04/19/20 24 04/19/2024 COMPL ETE BLOOD COUNT AUTO DIFF immature granulocytes pct auto 1.7 % not estb. Not Available [facility] (Lab) [address], [place], [address], 04/19/2024 21:54:24 04/19/20 24 04/19/2024 COMPL ETE BLOOD COUNT AUTO DIFF neutrophils percent auto 55 % not estb. Not Available [facility] (Lab) [address] [facility], [place], [address], 04/19/2024 21:54:24 04/19/20 24 04/19/2024 COMPL ETE BLOOD COUNT AUTO DIFF lymphocytes percent auto 31 % not estb. Not Available [facility] (Lab) [address] [facility], [place], [address], 04/19/2024 21:54:24 04/19/20 24 04/19/2024 COMPL ETE BLOOD COUNT AUTO DIFF monocytes percent auto 10 % not estb. Not Available [facility] (Lab) [address], [place], [address], 04/19/2024 21:54:24 04/19/20 24 04/19/2024 COMPL ETE BLOOD COUNT AUTO DIFF eosinophils percent auto 1 % not estb. Not Available [facility] (Lab) [address] [facility], [place], [address], 04/19/2024 21:54:24 04/19/20 24 04/19/2024 COMPL ETE BLOOD COUNT AUTO DIFF basophils percent auto 1 % not estb. Not Available [facility] (Lab) [address] [facility], [place], [address], 04/19/2024 21:54:24 04/19/20 24 04/19/2024 COMPL ETE BLOOD COUNT AUTO DIFF neutrophils absolute auto 3.8 x10e3 /uL 1.4-7. 0 normal Not Available [facility] (Lab) [address] [facility], [place], [address], 04/19/2024 21:54:24 04/19/20 24 04/19/2024 COMPL ETE BLOOD COUNT AUTO DIFF immature granulocytes abs auto 0.1 x10e3 /uL 0.0-0. 1 normal Not Available [facility] (Lab) [address] [place], [address], 04/19/2024 21:54:24 04/19/20 24 04/19/2024 COMPL ETE BLOOD COUNT AUTO DIFF lymphocytes absolute auto 2.2 x10e3 /uL 0.7-3. 1 normal Not Available [facility] (Lab) [address] [place], [address], 04/19/2024 21:54:24 04/19/20 24 04/19/2024 COMPL ETE BLOOD COUNT AUTO DIFF monocytes absolute auto 0.7 x10e3 /uL 0.1-0. 9 normal Not Available [facility] (Lab) [address] [place], [address], 04/19/2024 21:54:24 04/19/20 24 04/19/2024 COMPL ETE BLOOD COUNT AUTO DIFF eosinophils absolute auto 0.1 x10e3 /uL 0.0-0. 4 normal Not Available [facility] (Lab) [address] [place], [address], 04/19/2024 21:54:24 04/19/20 24 04/19/2024 COMPL ETE BLOOD COUNT AUTO DIFF basophils absolute auto 0.0 x10e3 /uL 0.0-0. 2 normal Not Available [facility] (Lab) [address] [place], [address], 04/19/2024 21:54:24 04/19/20 24 04/19/2024 COMPL ETE BLOOD COUNT AUTO DIFF nucleated red blood cells auto 0 % 0-0 normal Not Available [facility] (Lab) [address] [place], [address], 04/19/2024 21:54:24 04/19/20 24 04/21/2024 PROST ATE [...] t be inter prete d as absol chefornak evide nce of the prese nce or absen ce of beau espinosa se. Perfo rmed at: 01 - [facility] [address] [id number] [place] [facility] Lab Direc tor: Buddy jerez PhD, Phone : [phone] Not Available [facility] (Lab) [address] [place], [address], 04/21/2024 12:11:41 04/19/20 24 04/25/2024 TESTO STERO NE, FREE/ TOT EQUIL IB testosterone 257 NG/dL 264-91 6 abnormal Adult male refer ence inter neeta is based on a popul ation of healt hy nonob lin males (BMI <30) betwe en 19 and 39 years old. Haydee gamboa, et.al . JCEM 2017, 102;1 161-1 173. PMID: 87849 103. Not Available [facility] (Lab) [address] [place], [address], 04/25/2024 22:09:41 04/19/20 24 04/25/2024 TESTO STERO NE, FREE/ TOT EQUIL IB testosterone ,free 10.15 NG/dL 5.00-2 1.00 Not Available [facility] [address] [place], [address], 04/25/2024 22:09:41 04/19/20 24 04/25/2024 TESTO STERO NE, FREE/ TOT EQUIL IB % free testosterone 3.95 % 1.50-4 .20 Perfo rmed at: 01 - [facility] n [address] [place] [address] 1262 Lab Direc tor: Buddy jerez PhD, Phone : [phone] Perfo rmed at: 02 - [facility] [place] [address] [facility] , [place] [address] Lab Direc tor: Sandee alfaro MD, Phone : [phone] Not Available [facility] (Lab) [address] [facility], [place], [address], 04/25/2024 22:09:41 08/23/2008/25/2024 LONG TIN ferritin 259 NG/mL 30-400 Perfo rmed at: 01 - [facility] n [address] [place], [place] [address] 2625 Lab Direc tor: Buddy jerez PhD, Phone : [phone] Not Available [facility] (Lab) [address] [facility], [place], [address], 08/25/2024 08:15:02 08/23/20 24 08/25/2024 IRON AND TIBC iron bind.cap.(TI BC) 178 ug/dL 250-45 0 abnormal Not Available [facility] (Lab) [address] [facility], [place], [address], 08/25/2024 08:15:03 08/23/20 24 08/25/2024 IRON AND TIBC UIBC 98 ug/dL 111-34 3 abnormal Not Available [facility] (Lab) [address] [place], [address], 08/25/2024 08:15:03 08/23/20 24 08/25/2024 IRON AND TIBC iron 80 ug/dL 38-169 Not Available [facility] (Lab) [address] [facility], [place], [address], 08/25/2024 08:15:03 08/23/20 24 08/25/2024 IRON AND TIBC iron saturation 45 % 15-55 Not Available [facility] ([facility]) [address] [facility], [place], [address], 08/25/2024 08:15:03 08/23/20 24 08/25/2024 ACUTE HEPAT ITIS hep A Ab, IgM NEGATI VE negati ve A negat torres anti- HAV IgM resul t sugge sts no recen t or curre nt HAV infec tion. Not Available [facility] ([facility]) [address] [facility], [place], [address], 08/25/2024 08:15:04 08/23/20 24 08/25/2024 ACUTE HEPAT ITIS HBsAg screen NEGATI VE negati ve Not Available [facility] (Lab) [address] [facility], [place], [address], 08/25/2024 08:15:04 08/23/20 24 08/25/2024 ACUTE HEPAT ITIS hep B core Ab, IgM NEGATI VE negati ve Not Available [facility] (Lab) [address] [facility], [place], [address], 08/25/2024 08:15:04 08/23/20 24 08/25/2024 ACUTE HEPAT ITIS HCV Ab NON REACTI VE non reacti ve Not Available [facility] (Lab) [address] [facility], [place], [address], 08/25/2024 08:15:04 08/23/20 24 08/25/2024 ACUTE HEPAT ITIS interpretati on: COMMEN T . Not infec arturo with HCV unles s early or acute infec tion is suspe cted (whic h may be delay ed in an immun ocomp romis ed indiv idual ), or other evide nce exist s to indic ate HCV infec tion. Perfo rmed at: 01 - [facility] [address] [facility], [place] [id number] [facility] Lab Direc tor: Buddy jerez PhD, Phone : [phone] Not Available [facility] (Lab) [address] [place], [address], 08/25/2024 08:15:04 08/23/2008/25/2024 LONG TIN ferritin 259 NG/mL 30-400 Perfo rmed at: 01 - [facility] n [address] [facility], [place] [id number] [facility] Lab Direc tor: Buddy jerez PhD, Phone : [phone] Not Available [facility] (Lab) [address] [facility], [place], [address], 08/25/2024 11:14:59 08/23/2008/25/2024 IRON AND TIBC iron bind.cap.(TI BC) 178 ug/dL 250-45 0 abnormal Not Available [facility] (Lab) [address] [place], [address], 08/25/2024 11:14:59 08/23/2008/25/2024 IRON AND TIBC UIBC 98 ug/dL 111-34 3 abnormal Not Available [facility] (Lab) [address] [facility], [place], [address], 08/25/2024 11:14:59 08/23/2008/25/2024 IRON AND TIBC iron 80 ug/dL 38-169 Not Available [facility] (Lab) [address] [place], [address], 08/25/2024 11:14:59 08/23/2008/25/2024 IRON AND TIBC iron saturation 45 % 15-[address] [facility] [address] [place], [address], 08/25/2024 11:14:59 08/23/2008/25/2024 STEVE COMPR EHENS TORRES PANEL anti-DNA (ds) Ab qn <1 IU/mL 0-9 Negat torres <5 Equiv ocal 5 - 9 Posit torres >9 Not Available [facility] (Lab) [address] [place], [address], 08/25/2024 11:15:00 08/23/20 24 08/25/2024 STEVE COMPR EHENS TORRES PANEL core filer antibodies <0.2 ai 0.0-0. 9 Not Available [facility] (Lab) [address] [place], [address], 08/25/2024 11:15:00 08/23/20 24 08/25/2024 STEVE COMPR EHENS TORRES PANEL beverly antibodies <0.2 ai 0.0-0. 9 Not Available [facility] (Lab) [address] [place], [address], 08/25/2024 11:15:00 08/23/20 24 08/25/2024 STEVE COMPR EHENS TORRES PANEL antisclerode rma-70 antibodies <0.2 ai 0.0-0. 9 Not Available [facility] (Lab) [address] [place], [address], 08/25/2024 11:15:00 08/23/20 24 08/25/2024 STEVE COMPR EHENS TORRES PANEL sjogren's anti-ss-A <0.2 ai 0.0-0. 9 Not Available [facility] (Lab) [address] [place], [address], 08/25/2024 11:15:00 08/23/20 24 08/25/2024 STEVE COMPR EHENS TORRES PANEL sjogren's anti-ss-B <0.2 ai 0.0-0. 9 Not Available [facility] (Lab) [address] [place], [address], 08/25/2024 11:15:00 08/23/20 24 08/25/2024 STEVE COMPR EHENS TORRES PANEL antichromati n antibodies <0.2 ai 0.0-0. 9 Not Available [facility] (Lab) [address] [place], [address], 08/25/2024 11:15:00 08/23/20 24 08/25/2024 STEVE COMPR EHENS TORRES PANEL anti-annette-1 <0.2 ai 0.0-0. 9 Not Available [facility] (Lab) [address] [place], [address], 08/25/2024 11:15:00 08/23/20 24 08/25/2024 STEVE COMPR EHENS TORRES PANEL anti-centrom ere B antibodies <0.2 ai 0.0-0. 9 Not Available [facility] (Lab) [address] [place], [address], 08/25/2024 11:15:00 08/23/20 24 08/25/2024 STEVE COMPR [...] ----- ----- ----- ----- --- ----- ---- B[employer] WORKER Mixed Conne ctive Tissu e Disea se 95% (U1 nRNP, SLE 30 - 50% anti- ribon ucleo prote in) Polym yosit is and/o r [place] tomyo sitis 20% ----- ----- ----- ----- - ----- ----- ----- ----- ---- ----- ---- Scl-7 0 (anti DNA Scler oderm a (diff use) 20 - 35% topoi mihaela ase) Crest 13% ----- ----- ----- ----- - ----- ----- ----- ----- ---- ----- ---- Annette-1 Polym yosit is and/o r [place] tomyo sitis 20 - 40% ----- ----- ----- ----- - ----- ----- ----- ----- ---- ----- ---- Centr omere B Scler oderm a - Crest varia nt 80% Perfo rmed at: 01 - [facility] [address] [place] [address] Lab Direc tor: Buddy jerez PhD, Phone : [phone] Not Available [facility] (Lab) [address] [place], [address], 08/25/2024 11:15:00 08/23/20 24 08/25/2024 CERUL OPLAS MIN ceruloplasmi n 19.8 mg/dL 16.0-3 1.0 Perfo rmed at: 01 - [facility] [address] [place] [address] 1269 Lab Direc tor: Buddy jerez PhD, Phone : [phone] Not Available [facility] (Lab) [address] [place], [address], 08/25/2024 13:09:23 12/09/19 25 12/06/2024 home sleep testi ng (PROC ) No observ ation record ed. [address] [place] [address], [address], 12/14/2024 14:58:19 12/12/19 25 12/06/2024 home sleep testi ng (PROC ) No observ ation record ed. [facility] [address] [place], [address], 12/13/2024 21:37:15 Result Notes None recorded. Problems Name Problem SNOMED Code Status Onset Date Resolution Date Notes Provider Name and Address Organization Details Recorded Time Testosterone level below reference range 683616109 Active 2023 ANIBAL Wolf, [place] - [facility] 4 16:08:18 Screening for malignant neoplasm of prostate Active 2023 ANIBAL [place] [facility] 4 16:08:19 Liver enzymes level above reference range 483932354 Active 2023 Jamaal Chakraborty [place] null, [place] - [facility] 4 11:34:52 Fatigue 77058744 Active 2023 Jamaal Chakraborty [place], [place] [facility] 4 11:35:22 Essential hypertension 17324028 Active 2023 Sarahi Kingston MD Attn: Ricardo melo,[address] [facility], [place], [address], [place] - [facility] 4 22:03:40 Hyperlipidemia 89508016 Active 2023 Sarahi Kingston MD Attn: Accountin g,[address] [facility], [place], [address], [place] - [facility] 4 22:03:41 Morbid obesity 769425192 Active 2023 Sarahi Kingston MD Attn: Ricardo g,[address] [facility], [place], [address], [facility] - [facility] 4 22:03:44 Insomnia 337642963 Active 2023 Sarahi Kingston MD Attn: Accounteddi g,[address] [facility], [place], [address], [place] - [facility] 4 22:04:03 Problem Notes None recorded. Procedures Surgical History Date Name Laterality Status Provider Name and Address Organization Details Recorded Time Cholecystectomy completed Sudha Mccord [place] - [facility] 02/26/2024 11:46:23 removal of pilonidal cyst completed Sudha Mccord [place] - [facility] 02/26/2024 11:49:38 Imaging Results Imaging Date Name Status LastModified by [facility] Details LastModified Time 12/06/2024 home sleep testing (PROC) completed [facility] [address] [place] [address], [address], 12/14/2024 14:58:19 12/06/2024 home sleep testing (PROC) completed [facility] [address] [place], [address], 12/13/2024 21:37:15 Procedure Notes None recorded. Medical Equipment None Reported. Allergies Allergen ID Allergen Name Allergen Category Reaction Reaction Severity Criticality Documentation Date Start Date Code Code System Note Provider Name and Address Organization Details Recorded Time 585381 lisinopri l medicatio n cough Not available Not available 02/26/2024 40747 RxNorm Not Available Not Available Not Available [...] Avai lable Vitals Date Recorded Body height Body mass index (BMI) Body weight Respiratory rate Oxygen saturation Oxygen saturation in Arterial blood by Pulse oximetry Heart rate Systolic blood pressure Diastolic blood pressure Provider Name and Address Organization Details Last Updated DateTime 4 180.34 cm 41.2 kg/m2 806025. 19 g 20 /min 95 % 95 % 70 /min 136 mm[Hg] 86 mm[Hg] Sudha Mccord [place] - [facility] 4 11:52:15 Date Recorded Body height Body mass index (BMI) Body weight Heart rate Oxygen saturation Oxygen saturation in Arterial blood by Pulse oximetry Systolic blood pressure Diastolic blood pressure Provider Name and Address Organization Details Last Updated DateTime 180.34 cm 44.5 kg/m2 802937. 4 g 81 /min 98 % 98 % 122 mm[Hg] 64 mm[Hg] Rohini Huerta [place] - [facility] 16:40:18 Social History Question Answer Notes LastModified by Organizat ion Details LastModified Time Tobacco Smoking Status Never Smoker Sudha Mccord MA null, [place] - [facility] 02/26/2024 11:46:59 Do You Have An Advance [...] Atrial Fibrillation N High Blood Pressure Y Thyroid Problems N Kidney or Bladder Problems N Depression N COPD N Blood Clots N GI Problems N Skin Problems N Anemia N Heart Attack (TN) N Diabetes N Anxiety Disorder N Muscle, Joint, or Bone Problems N Seizures/Epilepsy N Acid Reflux (GERD) N Cancer N Stroke N Allergies Y Asthma N High Cholesterol N Hepatitis N Liver Disease N Headaches N Osteoporosis N Heart Failure N Immunizations Vaccine Type Date Status Note Provider Nam e and Address Organization Details Recorded Time Influenza, split virus, quadrivalent, preservative 0 completed Jamaal Chakraborty [place], [place] [facility] 05/03/2024 11:35:41 HPV9 9 completed Jamaal Chakrabort[place] [facility] 05/03/2024 11:35:41 COVID-19, mRNA, LNP-S, PF, 100 mcg/0.5mL dose or 50 mcg/0.25mL dose 1 completed Jamaal Chakraborty [place], [place] [facility] 05/03/2024 11:35:41 COVID-19, mRNA, [...] SNOMED-CT Code Diagnosis ICD10 Code Diagnosis Note [id number] MD Oniel Valadez (Adult Med) [address] [place] [address] 02/26/2024 11:18:25 02/26/2024 12:29:35 Fatigue 63323267 R53.83 Screening for cardiovascular system disease 506088414 Z13.6 [id number] MD Oniel Valadez (Adult Med) [address] [place] [address] 08/23/2024 16:14:35 08/23/2024 17:05:57 Morbid obesity 393251325 E66.01 Essential hypertension 70181232 I10 Hyperlipidemia 09193843 E78.5 Testostero ne level below reference range 870107902 R89.1 Insomnia 792474355 G47.0 0 Health Concerns Section Related Observation LastModified by Organization Detai ls LastModified Time None Recorded Concern Status LastModified by Organization Details LastModified Time None Recorded Advance Directives Directive N: Payers Encounter Date Sequence Insurance Name Policy Number Policy Chen Covered Member ID Chen Member ID Guarantor Name 02/26/2024 1 [facility] PRIOR TO 2024 - [employer] () Willard Cedeño [id number] Willard Cedeño 08/23/2024 1 [facility] PRIOR TO 11/16/2024 - [employer] () Willard Cedeño [id number] Willard Cedeño Notes Date Note Type Note Provider Name and Address Organization Details Recorded Time 02/26/2024 text/html Taking his blood pressure medicine with without any side effects has had some he is tolerating Contrave. He does use some and Ambien for insomnia Sarahi Kingston MD Attn: Accounting,[address] [facility], [place], [address], [facility] 02/27/2024 18:38:02 08/23/2024 text/html Hypertension blo od pressure looks good 122/64 he is asymptomatic. Obesity no luck with the Contrave he had no luck with the phentermine. Low testosterone he can start that. Insomnia zolpidem does help. Dyslipidemia trying to take atorvastatin daily. Fatigue daytime can fall asleep very easily sitting in a quiet position. 

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
--- OUTSIDE RECORDS SUMMARY | 2024-12-27 09:01 | XMS_ITS | Data Portability ---
Author Organization [place] - [facility] [email or web address], Main Office Address [address] [place] [address] Assessment Encounter Date Assessment Date Assessment LastModified by Organization Details LastModified Time 06/11/2023 06/11/2023 Will try to get injectable GLP 1 agent Blood work he needs to get it done See me back 4 weeks after starting medicine 4 months without [email or web address] Not available 06/11/2023 21:03:05 12/09/2023 12/09/2023 Insurance has refused G LP 1 agent. They have signal that they will pay for Contrave he has no eating disorder there is no addiction problems with narcotics he is not taking narcotics in any way shape or form will go ahead and prescribe this medication and he will see me back in a few months [email or web address] Not available 12/15/2023 22:27:51 Plan of Treatment Reminders Order Date Submit Date Provider Last Modified By Organization Details Last Modified Time Details Appointments None recorded. Lab T4, free, serum 2022 023 Muut [facility], [address], [address] [facility], [place], [address], 4 13:39:25 TSH, serum or plasma 2022 023 Muut [facility], [address], [address], [place], [address], 4 13:39:26 CBC w/ auto diff 2022 023 Muut [facility], [address], [address], [place], [address], 3 17:34:34 lipid panel, serum 2022 023 [facility]Innohatl [facility], [address], [address], [place], [address], 4 13:39:26 CMP, serum or plasma 2022 023 [facility]Inno[facility]l [facility], [address], [address], [place], [address], 4 13:39:26 T3, free, serum or plasma 2022 023 [facility]Innohatl [facility], [address], [address], [place], [address], 4 13:39:26 Referral None recorded. Procedures None recorded. Surgeries None recorded. Imaging None recorded. Medication Orders Wegovy 0.25 mg/0.5 mL subcutaneou s pen injector 2022 023 [email or web address] [facility], [address] [place] [address], [address], 3 17:46:00 Patient TargetsNo targets recorded. Patient InstructionsNo instructions recorded. Reason for Referral None Reported. Results Created Date Observation Date Name Description Value Unit Range Abnormal Flag Note LastModifiedBy Organization Detail LastModifiedTime Result Notes None recorded. Problems Name Problem SNOMED Code Status Onset Date Resolution Date Notes Provider Name and Address Organization Details Recorded Time Abnormal urine 193485474 Active Not Available [facility] 3 15:41:58 Insomnia 331305357 Active 2021 Not Available [facility] 3 15:41:59 Shoulder pain 15091611 Active 2021 Not Available [facility] 3 15:41:59 Allergic condition 856110224 Active Not Available [facility] 3 15:41:59 Essential hypertension 80261254 Active 2021 Not Available [facility] 3 15:41:59 Obesity 715082346 Active 2022 Maria Del Carmen Abel RN null, [place] - [facility] 12:13:31 Problem Notes None recorded. Procedures Surgical History Date Name Laterality Status Provider Name and Address Organization Details Recorded Time removal of pilonidal cyst completed Not Available [facility] 01/14/2023 15:40:34 Cholecystectomy completed Not Available [facility] 01/14/2023 15:40:34 Imaging Results None recorded. Procedure Notes None recorded. Medical Equipment None Reported. Allergies Allergen ID Allergen Name Allergen Category Reaction Reaction Severity Criticality Documentation Date Start Date Code Code System Note Provider Name and Address Organization Details Recorded Time 54115 lisinopri l medicatio n cough Not available Not available 01/14/2023 64788 RxNorm Not Available [facility] 15:44:20 Medications Name Sig Start Date Stop [...] Date Recorded Body mass index (BMI) Body mass index (BMI) Body mass index (BMI) Body height Body height Body height Heart rate Heart rate Heart rate Body temperature Body temperature Body temperature Body weight Body weight Body weight Systolic blood pressure Diastolic blood pressure Systolic blood pressure Diastolic blood pressure Systolic blood pressure Diastolic blood pressure Provider Name and Address Organization Details Last Updated DateTime 3 43.5 kg/m2 38.8 kg/m2 39.1 kg/m2 180.34 cm 180.34 cm 180.34 cm 72 /min 62 /min 66 /min 97.4 [degF] 96.6 [degF] 97.8 [degF] 338055. 82 g 204621. 68 g 198567. 86 g 132 mm[Hg] 78 mm[Hg] 142 mm[Hg] 90 mm[Hg] 130 mm[Hg] 82 mm[Hg] Not Available [facility] 3 15:41:16 Date Recorded Body height Body mass index (BMI) Body weight Body temperature Heart rate Systolic blood pressure Diastolic blood pressure Provider Name and Address Organization Details Last Updated DateTime 3 180.34 cm 39.5 kg/m2 454537. 08 g 97.9 [degF] 80 /min 154 mm[Hg] 88 mm[Hg] Elisa Pruett, AN[place] [facility] [employer] [facility] 3 16:38:33 Date Recorded Body height Body mass index (BMI) Body weight Body temperature Heart rate Oxygen saturation Oxygen saturation in Arterial blood by Pulse oximetry Systolic blood pressure Diastolic blood pressure Provider Name and Address Organization Details Last Updated DateTime 4 180.34 cm 41.1 kg/m2 315844. 75 g 97.3 [degF] 68 /min 96 % 96 % 126 mm[Hg] 78 mm[Hg] Katerin hebert CMA [place] - [facility] 4 16:49:04 Social History Question Answer Notes LastModified by Organizat ion Details LastModified Time Tobacco Smoking Status Never Smoker Not Available [facility] 01/14/2023 15:40:28 Do You Have An Advance Directive? Yes [id number] Information not available 01/14/2023 What Is Your Level Of Alcohol Consumption? Moderate MIGRATION.81224 57208 Information not available 01/14/2023 What Is Your Level Of Caffeine Consumption? Moderate MIGRATION.52043 06190 Information not available 01/14/2023 How Much Tobacco Do You Chew? None [id number].39776 20955 Information not available 01/14/2023 In The 14 Days Before Symptom Onset, Have You Had Close Contact With A Laboratory-confi rmed COVID-19 While That Case Was Ill? No MIGRATION.21915 54798 Information not available 01/14/2023 In The 14 Days Before Symptom Onset, Have You Had Close Contact With A Person Who Is Under Investigation For COVID-19 While That Person Was Ill? No MIGRATION.68219 06691 Information not available 01/14/2023 What Type Of Diet Are You Following? REGULAR MIGRATION.89722 64368 Information not available 01/14/2023 Which Illicit Or Recreational Drugs Have You Used? None MIGRATION.85575 44917 Information not available 01/14/2023 Do You Or Have You Ever Used E-cigarettes Or Vape? Never Used Electronic Cigarettes MIGRATION.79942 50338 Information not available 01/14/2023 What Is The Highest Grade Or Level Of School You Have Completed Or The Highest Degree You Have Received? 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 No Information not available 06/11/2023 What Is The Fluoride Status Of Your Home? Unknown Information not available 06/11/2023 Are There Any Guns Present In Your Home? No MIGRATION.90196 35398 Information not available 01/14/2023 Do You Use Insect Repellent Routinely? No Information not available 06/11/2023 [facility] Information not available 06/11/2023 What Was [...] Used Smokeless Tobacco? Never Used Smokeless Tobacco MIGRATION.70713 54984 Information not available 01/14/2023 Are There Any Smokers In Your House? No Information not available 06/11/2023 How Much Tobacco Do You Smoke? No MIGRATION.67693 37809 Information not available 01/14/2023 Do You Use Any Illicit Or Recreational Drugs? No Information not available 06/11/2023 Do You Use Sunscreen Routinely? Yes MIGRATION.58239 54473 Information not available 01/14/2023 How Many Years Have You Smoked Tobacco? 0 MIGRATION.41266 78746 Information not available 01/14/2023 Have You Recently Traveled Abroad? No Information not available 06/11/2023 Sex: Unknown Functional Status Question Answer Note LastModified by Organizat ion Details LastModified Time What is your exercise level? Heavy [id number].[id number] Information not available 01/14/2023 Mental Status None recorded. Family History Nothing Reported Notes:pt adopted Medical History Condition Response NERVE DISEASE N BLINDNESS N RHEUMATIC FEVER N KIDNEY STONES N BLADDER PROBLEMS N OTHER # 1 Y POLIO N [...] ARTERY DISEASE (CAD) N ADDICTION CONCERNS N ENDOMETRIOSIS N Impotence N USE OF BLOOD THINNERS N SKIN [...] APNEA N CHICKENPOX N INFECTIOUS DISEASE N HEART ARRHYTHMIA N PROSTATE N INSOMNIA N HIGH CHOLESTEROL / HYPERLIPIDEMIA N HYPERTHYROIDISM N EYE PROBLEMS N NEUROLOGICAL PROBLEMS N EDEMA N CHRONIC PAIN SYNDROME N HYPOTHYROIDISM N CAROTID BLOCKAGE N CONSTIPATION N BACK / NECK PROBLEMS N ATHEROSCLEROSIS N BREAST PROBLEMS N DIALYSIS N ECZEMA N OSTEOPOROSIS N ARTHRITIS N APPENDICITIS N DIABETES, TYPE N BAD TEETH N ENT N HEARTBURN / REFLUX N AUTISM SPECTRUM DISORDER (ASD) N HEPATITIS / LIVER DISEASE N PULMONARY DISEASE N GOUT N SLEEP DISORDER N ALZHEIMER'S DISEASE N Brain Problems N HERPES N DEMENTIA N HEADACHES/MIGRAINES N SEIZURES/EPILEPSY N VASCULAR DISEASE N PACEMAKER N Blood Disorder N DIZZINESS N HEART DISEASE/HEART PROBLEMS N KIDNEY DISEASE N MULTIPLE SCLEROSIS N CARDIAC ARRHYTHMIA N CANCER: SPECIFY N ANESTHESIA COMPLICATIONS N ATRIAL FIBRILLATION N Gall Stones N PULMONARY EMBOLISM N AUTOIMMUNE DISEASE N Immunizations Vaccine Type Date Status Note Provider Nam e and Address Organization Details Recorded Time COVID-19, mRNA, LNP-S, PF, 100 mcg/0.5mL dose or 50 mcg/0.25mL dose 1 completed Not Available [facility] 01/14/2023 15:44:15 COVID-19, mRNA, LNP-S, PF, 100 mcg/0.5mL dose or 50 mcg/0.25mL dose 1 completed Not Available [facility] 01/14/2023 15:44:15 Influenza, split virus, quadrivalent, preservative 0 completed Not Available [facility] 01/14/2023 15:44:15 HPV9 9 completed Not Available [facility] 01/14/2023 15:44:16 Past Encounters Encounter ID Performer Location Encounter Start Date Encounter Closed Date Diagnosis/Indication Diagnosis SNOMED-CT Code Diagnosis ICD10 Code Diagnosis Note [id number] [facility] [place] [address] [facility] [place] [address] [address] 01/29/2021 00:00:00 01/29/2021 23:30:01 [id number] [facility] [place] [address] [facility] dequ[address] Garcia, [place] [address] 05/29/2022 00:00:00 05/31/2022 18:37:03 [id number] [facility] [address] [facility] [address] [address] 12/11/2022 00:00:00 12/20/2022 21:08:50 [id number] Barney Kingston MD [facility] [address] [facility] [address] [address] 06/11/2023 16:26:19 06/11/2023 17:31:54 Essential hypertension 56323114 I10 Obesity 867669145 E66.9 Insomnia 142288844 G47.0 0 [id number] Barney Kingston MD [facility] [address] [facility], [address] [address] 12/09/2023 15:45:59 12/09/2023 17:34:21 Insomnia 468536746 G47.00 Essential hypertension 07661991 I10 Obesity 377483430 E66.9 Health Concerns Section Related Observation LastModified by Organization Detai ls LastModified Time None Recorded Concern Status LastModified by Organization Details LastModified Time None Recorded Advance Directives Directive Y: Payers Encounter Date Sequence Insurance Name Policy Number Policy Chen Covered Member ID Chen Member ID Guarantor Name 06/11/2023 1 [employer] () Willard Cedeño [id number] Willard Cedeño 12/09/2023 1 [employer] () Willard Cedeño [id number] Willard Cedeño Notes Date Note Type Note Provider Name and Address Organization Details Recorded Time 06/11/2023 text/html insomnia uses Am no sparingly no side effectsObesity struggle with weightHypertension blood pressures are good at home Barney Kingston MD [address], [place], [address], [facility] [employer] [facility] 06/11/2023 21:03:08 12/09/2023 text/html Hypertension no headache no dizzinessWeight gain and obesity despite weight loss surgery in his not had luck with dietingInsomnia doing fine on current regimen without side effects Barney Kingston MD [address], [place], [address], [facility] [employer] [facility] [employer] [facility] 12/15/2023 22:28:11
--- OUTSIDE RECORDS SUMMARY | 2024-12-27 09:01 | XMS_ITS ---
Author Organization [facility] Address [address] [place] [address] Care Team Providers Care Doorperson Or Luggage Porter Name Role Phone Unavailable Unavailable Unavailable Surgery Details Not on file Complications Check Surgery Details section. Procedure Estimated Blood Loss Check Surgery Details section. Procedure Findings Check Surgery Details section. Procedure Specimens Taken Check Surgery Details section.
--- OUTSIDE RECORDS SUMMARY | 2024-12-27 09:01 | XMS_ITS | CCD ---
Author Organization [facility] Address [address] [place] [address] Care Team Providers Care Index Clerk Name Role Phone Unavailable Primary Care Provider Unavailabl e Allergies Active Allergy Reactions Criticality Noted Date Comments Lisinopril Cough 09/06/2024 Medications losartan (COZAAR) 25 mg tablet Take 25 mg by mouth 1 (one) time each day. 06/16/2023 Active testosterone cypionate (DEPO-TESTOTERO NE) 200 mg/mL injection Inject 200 mg into the shoulder, thigh, or buttocks every 14 (fourteen) days. 04/04/2024 Active zolpidem (AMBIEN) 10 mg tablet Take 10 mg by mouth at night if needed. 12/11/2023 Active Active Problems Problem Noted Date Diagnosed Date Allergic condition 09/29/2024 Decreased testosterone level 04/03/2024 Obesity 02/04/2023 Essential hypertension 08/28/2022 Lumbar transverse process fr acture, closed, initial encounter (HCC) 04/09/2020 Immunizations Immunization Administration Dates Next Due COVID-19, mRNA, LNP-S, PF, 1 00 mcg/0.5mL dose or 50 mcg/0.25mL dose 01/10/2021,12/13/2020 HPV9 03/29/2019 INFLUENZA, INJECTABLE, QUADRIVALENT 09/16/2020 Social History Tobacco Use Types Packs/Day Years Used Date Smoking Tobacco: Never Assessed Sex and Gender Information Value Date Recorded Sex Assigned at Not on file Legal Sex Male 11:38 AM PDT Gender Identity Not on file Sexual Orientation Not on file Last Filed Vital Signs Vital Sign Reading Time Taken Comments Blood Pressure 147/92 09/29/2024 12:59 PM PROPERTY COORDINATOR Pulse - - Temperature - - Respiratory Rate - - Oxygen Saturation - - Inhaled Oxygen Concentration - - Weight - - Height - - Body Mass Index - - Plan of Treatment Upcoming Encounters Date Type Department Care Team (Late st Contact Info) Description 01/10/2025 4:00 PM PROPERTY COORDINATOR Office Visit [facility] [address] [place] [phone] Isis Lim, [facility] [address] [facility] [place] [address] 01/10/2025 4:00 PM PROPERTY COORDINATOR Office Visit [facility] [address] [place] [phone] Ryan Wynn, R[facility] [address] [place] [address] Procedures Procedure Name Priority Date/Time Associated Diagnosis Comments 25 DIFL RESIN-BASED COMPOSITE - FOUR OR MORE SURFACES (ANTERIOR) Routine 09/29/2024 1:00 PM PROPERTY COORDINATOR PERIO MAINTENANCE Routine 09/06/2024 10: 00 AM CDT UL PERIODONTAL SCALING AND ROOT PLANING - FOUR OR MORE TEETH PER QUADRANT Routine 04/28/2024 2:30 PM CDT PANORAMIC RADIOGRAPHIC IMAGE Routine 04/14/2024 2:00 PM CDT INTRAORAL - COMPREHENSIVE SERIES OF RADIOGRAPHIC IMAGES Routine 04/14/2024 2:00 PM CDT COMPREHENSIVE ORAL EVALUATION - NEW OR ESTABLISHED PATIENT Routine 04/14/2024 2:00 PM CDT Encounter for dental examination and cleaning without abnormal findings from Last 3 Months or Most Recently Relevant to Health Maintenance
--- OUTSIDE RECORDS SUMMARY | 2024-12-27 09:01 | XMS_ITS | Clinical Summary ---
Author Organization [facility] Address [address] [place] [address] Care Team Providers Care Hog Worker Name Role Phone Unavailable Primary Care Provider [...] fr acture, closed, initial encounter (HCC) 04/09/2020 Encounters Date Type Department Care Team Description 09/29/2024 1:00 PM BECK OPERATOR Office Visit [facility] [address] [place] [phone] Ryan Wynn DMD from Last 3 Months Immunizations Immunization Administration Dates Next Due COVID-19, [...] Comments Blood Pressure 147/92 09/29/2024 12:59 PM BECK OPERATOR Pulse - - Temperature - - Respiratory Rate - - Oxygen Saturation - - Inhaled Oxygen Concentration - - Weight - - Height - - Body Mass Index - - Plan of Treatment Upcoming Encounters Date Type Department Care Team (Late st Contact Info) Description 01/10/2025 4:00 PM BECK OPERATOR Office Visit [facility] [address] [place] [phone] Isis Lim, [facility] [address] [place] [address] 01/10/2025 4:00 PM BECK OPERATOR Office Visit [facility] [address] [place] [phone] Ryan Wynn, [facility] [address] [place] [address] Health Maintenance Due Date Last Done Comments Dental Oral Exam 10/16/2024 04/14/2024 Dental X-Ray: Bitewings 10/16/2024 04/14/2024 Periodontal Maintenance 12/08/2024 09/06/2024 Scaling and Root Planing 05/12/2026 024, 04/28/2024, 04/20/2024, Additional history exists Dental X-Ray: Full Mouth 04/15/2027 04/14/2024 Dental X-Ray: Panoramic 04/15/2027 04/14/2024 Meningococcal B Vaccine Aged Out No l onger eligible based on patient's age to complete this topic Procedures Procedure Name Priority Date/Time Associated Diagnosis Comments 25 DIFL RESIN-BASED COMPOSITE - FOUR OR MORE SURFACES (ANTERIOR) Routine 09/29/2024 1:00 PM BECK OPERATOR PERIO MAINTENANCE Routine 09/06/2024 10: 00 AM [...] or Most Recently Relevant to Health Maintenance Insurance [employer] [place] [id number]
--- OUTSIDE RECORDS SUMMARY | 2024-12-27 09:01 | XMS_ITS | Encounter Summary ---
Author Organization [facility] Address [address] [place] [address] Care Team Providers Care Railway Track Worker Name Role Phone Unavailable Primary Care Provider Unavailabl e Prior Encounters Date Type Department Care Team Description 09/29/2024 1:00 PM COOL ROOFING INSTALLER Office Visit [facility] [address] [place] [phone] Ryan Wynn DMD 09/06/2024 10:00 AM CDT Office Visit [facility] [address] [place] [phone] Isis Lim, [facility] 04/28/2024 2:30 PM CDT Office Visit [facility] [address] [place] [phone] Hope Krishnamurthy, [facility] 04/20/2024 2:30 PM CDT Office Visit [facility] [address] [place] [phone] Hope Krishnamurthy, [facility] 04/14/2024 2:00 PM CDT Office Visit [facility] [address] [place] [phone] Shiva Avlies DDS Encounter for dental examination and cleaning without abnormal findings (Primary Dx) Last Filed Vital Signs Vital Sign Reading Time Taken Comments Blood Pressure 147/92 09/29/2024 12:59 PM COOL ROOFING INSTALLER Pulse - - Temperature - - Respiratory Rate - - Oxygen Saturation - - Inhaled Oxygen Concentration - - Weight - - Height - - Body Mass Index - - Plan of Treatment Upcoming Encounters Date Type Department Care Team (Late st Contact Info) Description 01/10/2025 4:00 PM COOL ROOFING INSTALLER Office Visit [facility] [address] [place] [phone] Isis Lim, [facility] [address] [place] [address] 01/10/2025 4:00 PM COOL ROOFING INSTALLER Office Visit [facility] [address] [place] [phone] Ryan Wynn, [facility] [address] [place] [address] Procedures Procedure Name Priority Date/Time Associated Diagnosis Comments 25 DIFL RESIN-BASED COMPOSITE - FOUR OR MORE SURFACES (ANTERIOR) Routine 09/29/2024 1:00 PM COOL ROOFING INSTALLER ORAL HYGIENE INSTRUCTIONS Routine 2023 10:00 AM CDT TOPICAL APPLICATION OF FLUORIDE VARNISH Routine 09/06/2024 10:00 AM CDT PERIO MAINTENANCE Routine 09/06/2024 10: 00 AM CDT ORAL HYGIENE INSTRUCTIONS Routine 2023 2:30 PM CDT TOPICAL APPLICATION OF FLUORIDE VARNISH Routine 04/28/2024 2:30 PM CDT LL JIMENEZ DECON/QD Routine 04/28/2024 2:30 PM CDT UL JIMENEZ DECON/QD Routine 04/28/2024 2:30 PM CDT LL ANTIBACT IRR/QUAD Routine 04/28/2024 2:30 PM CDT UL ANTIBACT IRR/QUAD Routine 04/28/2024 2:30 PM CDT LL PERIODONTAL SCALING AND ROOT PLANING - FOUR OR MORE TEETH PER QUADRANT Routine 04/28/2024 2:30 PM CDT UL PERIODONTAL SCALING AND ROOT PLANING - FOUR OR MORE TEETH PER QUADRANT Routine 04/28/2024 2:30 PM CDT UR JIMENEZ DECON/QD Routine 04/20/2024 2:30 PM CDT LR JIMENEZ DECON/QD Routine 04/20/2024 2:30 PM CDT UR ANTIBACT IRR/QUAD Routine 04/20/2024 2:30 PM CDT LR ANTIBACT IRR/QUAD Routine 04/20/2024 2:30 PM CDT LR PERIODONTAL SCALING AND ROOT PLANING - FOUR OR MORE TEETH PER QUADRANT Routine 04/20/2024 2:30 PM CDT UR PERIODONTAL SCALING AND ROOT PLANING - FOUR OR MORE TEETH PER QUADRANT Routine 04/20/2024 2:30 PM CDT INTRAORAL PHOTO Routine 04/14/2024 2:00 PM CDT INTRAORAL PHOTO Routine 04/14/2024 2:00 PM CDT INTRAORAL PHOTO Routine 04/14/2024 2:00 PM CDT INTRAORAL PHOTO Routine 04/14/2024 2:00 PM CDT PANORAMIC RADIOGRAPHIC IMAGE Routine 04/14/2024 2:00 PM CDT COMPREHENSIVE ORAL EVALUATION - NEW OR ESTABLISHED PATIENT Routine 04/14/2024 2:00 PM CDT Encounter for dental examination and cleaning without abnormal findings INTRAORAL - COMPREHENSIVE SERIES OF RADIOGRAPHIC IMAGES Routine 04/14/2024 2:00 PM CDT 25 ROOT CANAL Routine 04/14/2024 12:00 AM CDT 25 I COMPOSITE FILLING Routine 12:00 AM CDT Visit Diagnoses Diagnosis Start Date Encounter for dental examination and cleaning without abnormal findings 04/14/2024 Insurance [employer] [phone]
--- OUTSIDE RECORDS SUMMARY | 2024-12-27 09:01 | XMS_ITS | Referral Summary ---
Author Organization [facility] Address [address] [place] [address] Care Team Providers Care Multiple Launch Rocket System Crewmember Name Role Phone Unavailable Primary Care Provider Unavailabl e Encounters Date Type Department Care Team Description 09/29/2024 1:00 PM PHOTOGRAPHIC ARTIST Office Visit [facility] [address] [place] [phone] Ryan Wynn DMD from Last 3 Months Allergies Active Allergy Reactions Criticality Noted Date [...] Comments Blood Pressure 147/92 09/29/2024 12:59 PM PHOTOGRAPHIC ARTIST Pulse - - Temperature - - Respiratory Rate - - Oxygen Saturation - - Inhaled Oxygen Concentration - - Weight - - Height - - Body Mass Index - - Plan of Treatment Upcoming Encounters Date Type Department Care Team (Late st Contact Info) Description 01/10/2025 4:00 PM PHOTOGRAPHIC ARTIST Office Visit [facility] [address] [place] [phone] Isis Lim, [facility] [address] [place] [address] 01/10/2025 4:00 PM PHOTOGRAPHIC ARTIST Office Visit [facility] [address] [place] [phone] Ryan Wynn, R[facility] [address] [place] [address] Procedures Procedure Name Priority Date/Time Associated Diagnosis Comments 25 DIFL RESIN-BASED COMPOSITE - FOUR OR MORE SURFACES (ANTERIOR) Routine 09/29/2024 1:00 PM PHOTOGRAPHIC ARTIST PERIO MAINTENANCE Routine 09/06/2024 10: 00 AM [...] Most Recently Relevant to Health Maintenance Insurance [facility] [employer] [place] [id number]
[2025-01-23 14:02] VITALS: BMI 43.9
--- NOTE | 2025-01-23 14:02 | P.SLEEP_ITS ---
Sleep Study Date of Study: 12/27/24 Ordering Provider: Barney Kingston, Interpreting Physician: Juliette Pimentel DO Sleep Study Type: CPAP Titration Height: 1.8 m Weight: 142.882 kg Body Mass Index: 43.9 Neck Circumference (inches): 20 [place]: 11 Reason for Sleep Study [employer] home sleep test on 12/06/2024 showed an overall AHI of 42.5 with desaturation down to 66%. Sleep History Willard Cedeño is a 44-year-old man with difficulty falling asleep and staying asleep. He has a history of mild obstructive sleep apnea in 2011 however is not on treatment now. He has nighttime awakenings. He has zolpidem prescribed to help him get to sleep. He did not use this sedative hypnotic on the night of the home sleep test. He is not anxious about his sleep. He wakes with a dry mouth and he has nocturnal heartburn. He does not wake at night to go to the bathroom. He is not refreshed on waking, he is tired and sleepy during the day and he has an urge to fall asleep during the day however he does not feel drowsy while driving. He does not have problems with uncomfortable feelings in his legs at night nor does he kick excessively at night. He does not clench his jaws or grind his teeth at night. He usually awakens in the morning using an alarm at 7:00 a.m.. He often feels more alert in the evening compared to the morning. He has an alcoholic beverage 1 or 2 nights out of the week. His usual alcohol consumption is 2 glasses. He drinks caffeine 1-2 cups daily. He exercises 3 or 4 nights out of the week, the usual time is 7:00 p.m.. He does not work rotating shifts. He does not act out his dreams. He does not sleep walk. His normal sleep schedule is 10:00 p.m. on days before he works, falling asleep within an hour. He spent 7 hours in bed, 5 hours of sleep. On days off, his bedtime is 11:00 p.m. falling asleep within 2 hours spending, 9 hours in bed and 7 of those hours of asleep. His sleep is a little more restorative on days off compared to sleep on during the work week. He takes planned naps in the afternoon, a nap may last 1-2 hours however naps are not restorative. Habits: Tobacco: never smoker Caffeine: 1-2 daily Alcohol : 2 glasses on 1-2 nights in a week Recreational substances: none PMFSH Past Medical History Medical History Low testosterone Obesity BMI 43.9 12/06/2024 Elevated liver enzymes Fatigue Essential hypertension Primary insomnia Hyperlipidemia Surgical History Surgical History Status post surgical removal of pilonidal cyst Hx of cholecystectomy Social History Social History Smoking status: Never smoker Alcohol intake: current Substance use: never Sleep Procedure A full night CPAP Titration study using the [employer] Sleep[employer]enverge multi-channel system recorded the standard physiologic parameters including EEG, EOG, submentalis EMG, anterior tibialis EMG, EKG, body position, nasal and oral airflow using nasal pressure sensor and thermistor.? Respiratory parameters of chest and abdominal movements were recorded with Respiratory Inductance Plethysmography belts. Oxygen saturation was recorded by pulse oximetry. Video monitoring was also performed. Sleep stages, periodic limb movements, and EEG arousals were scored in 30 second epochs according to the criteria of the AASM Scoring Manual. The Apnea-Hypopnea Index was calculated using CMS guidelines for definition of hypopnea with 4% O2 desaturations while scoring respiratory events. Sleep Architecture The total recording time was 528.4 minutes.? The total sleep time was 428.5 minutes. Sleep latency was 4.3 minutes. REM latency was 81.5 minutes. Sleep efficiency was 81.1%. The patient had 46 awakenings for an awakening index of 6.4. Wake after Sleep Onset time was 96.0 minutes. The patient spent 47.0 minutes, 11.0% of total sleep time in Stage N1. The patient spent 256.0 minutes, 59.7% in Stage N2. The patient spent 45.5 minutes, 10.6% in Stage N3. The patient spent 80.0 minutes, 18.7% in Stage REM. Respiratory Analysis The patient had 43 hypopneas, 1 obstructive apnea and 3 central apneas for an overall Apnea Hypopnea Index of 6.4 events per hour. The REM Apnea Hypopnea Index was 9.0. The NREM Apnea Hypopnea Index was 5.9. The patient had a Central Apnea Hypopnea Index of 0.4. There was no evidence of Chilo-Gonzalez Respirations. The patient was started on CPAP 5 cm H2O and titrated to CPAP 15 cm H2O due to hypopneas. The patient was able to fall asleep starting on CPAP 5 cm H2O. The patient was able to achieve REM sleep starting on CPAP 7 cm H2O. The patient was able to achieve a residual AHI less than 6.0 on the final pressure setting. On CPAP 15 cm H2O, the patient spent 13.5 minutes in NREM and 37 minutes in REM with 5 hypopneas, resulting in an AHI of 5.9. The patient had a sleep efficiency of 85.6% on this pressure setting. Arousals There were 91 total arousals for an arousal index of 12.7. There were 74 spontaneous arousals for an index of 10.4. ?There were 15 arousals due to respiratory events for an index of 2.1. There were 0 arousals due to periodic limb movements for an index of 0.? There were 2 arousals due to isolated limb movements for an index of 0.3. Periodic Limb Movements The patient had 6 isolated limb movements with an index of 0.8. The patient had 0 periodic limb movements with index of 0. Patient had a total of 6 limb movements with a total limb movement index of 0.8. Oximetry Data The patient had an average oxygen saturation of 91.9% in sleep with a minimum oxygen saturation of 82.0% and a maximum oxygen saturation of 98.0%. The patient had 62 oxygen desaturations that were 4% or greater resulting in an Oxygen Desaturation Index of 8.7.? The patient spent 15.6 minutes, 3% of total sleep time with an oxygen saturation below 88%. Snoring Profile Mild snoring was present in the beginning of the study. The snoring resolved once the patient was titrated to 11 cm H2O. Cardiac Profile The EKG showed normal sinus rhythm. No arrhythmias or PVCs were seen. The patient had an average pulse rate of 69.1 bpm with a minimum pulse rate of 56.0 bpm and a maximum pulse rate of 91.0 bpm. ? EEG Profile No signs of seizure activity seen. Assessment and Plan Assessment and Plan (1) Obstructive sleep apnea: Code(s): G47.33 - Obstructive sleep apnea (adult) (pediatric) Status: Acute Assessment and Plan: The patient was started on CPAP 5 cm H2O and titrated to CPAP 15 cm H2O due to hypopneas. The patient's sleep apnea nearly resolved on the final pressure setting with a high sleep efficiency. I recommend that the patient be prescribed Resmed CPAP 15 cm H2O, size medium Resmed N30i nasal mask, CPAP filters/tubing and heated humidity. This should be used with all episodes of sleep.? Compliance should be reviewed within 31-90 days of starting therapy for usage greater than 4 hours per night greater than 70% of the nights. The patient should be asked about symptoms such as?excessive daytime sleepiness, quality of sleep, decreased nocturia, increased?mental functioning such as memory, mood, and concentration. Data The data obtained during this sleep study is adequate for interpretation. Certification This sleep study has been reviewed by a board certified sleep medicine physician.
== END 2024-12-28 06:49 | disposition home or self-care (01) ==
PROVIDERS: PCP Internal Medicine; Visit Provider Internal Medicine
DX: G47.33 Obstructive sleep apnea (adult) (pediatric) (principal)
CPT/HCPCS: 95811